=== PATIENT | male | born 1955 | race Caucasian/White ===

== ENCOUNTER 2018-04-18 10:27 | Observation (INO) | payer BC ==
--- NOTE | 2018-04-18 11:32 | ED ---
Abdominal Pain/Male - HPI Summary HPI Summary: A 62 y/o M presents to ED with c/o R-sided abd pain near ribs onset a week ago and worsening. Aggravating factors: bending, standing. Pt ate at [employer] last night and he says the pain did noticeably increase after that. Deep breaths don't effect the pain. No recent trauma or falls. Denies: hematuria, dysuria, frequency, vomiting. PMHx: multiple PE, GA around 2002. No HTN. Pt is on Coumadin 20 mg daily. Former smoker. No ETOH or drugs. As ED provider was preparing to leave the room, the patient mentioned that when he walks from his truck to his office (approx 100 yards), he feels his neck tightening with some jaw pain. He last saw his cooling room attendant in [place] in 2016 and had a normal stress test. He missed his last scheduled appt in fall 2017. - History of Current Complaint Chief Complaint: EDAbdPain Stated Complaint: RIGHT FLANK PAIN Time Seen by Provider: 04/18/18 11:23 Hx Obtained From: Patient, Family/Edger Liner - Onset/Duration: Gradual Onset, Lasting Weeks, Still Present Timing: Constant - undulating intensity Severity Initially: Moderate Severity Currently: Moderate Pain Intensity: 6 Pain Scale Used: 0-10 Numeric Location: Discrete At: RUQ - next to rib Radiates: No Character: Other: - Aching Aggravating Factor(s): Food, Movement - standing, bending over Associated Signs And Symptoms: Negative: Blood in Stool, Urinary Symptoms, Vomiting - Allergies/Home Medications Allergies/Adverse Reactions: Allergies Allergy/AdvReac Type Severity Reaction Status Date / Time No Known Allergies Allergy Verified 04/18/18 10:36 PMH/Surg Hx/FS Hx/Imm Hx Previously Healthy: Yes Endocrine/Hematology History: Denies: Hx Diabetes, Hx Thyroid Disease Cardiovascular History: Reports: Hx Myocardial Infarction Denies: Hx Hypertension, Hx Pacemaker/ICD Respiratory History: Reports: Other Respiratory Problems/Disorders - PULMONARY EMBOLISM Denies: Hx Asthma, Hx Chronic Obstructive Pulmonary Disease (COPD) GI History: Denies: Hx Ulcer History: Denies: Hx Renal Disease Musculoskeletal History: Denies: Hx Rheumatoid Arthritis, Hx Osteoporosis Sensory History: Denies: Hx Hearing Aid Psychiatric History: Denies: Hx Panic Disorder - Surgical History Surgery Procedure, Year, and Place: Left index finger tendon replaced and repaired Infectious Disease History: No Infectious Disease History: Denies: Hx Hepatitis, Hx Human Immunodeficiency Virus (HIV), History Other Infectious Disease, Traveled Outside the [place] in Last 30 Days - Family History Known Family History: Positive: Cardiac Disease - mom - GA - Social History Occupation: Unemployed - OTHER Lives: With Family Alcohol Use: None Hx Substance Use: No Substance Use Type: Reports: None Hx Tobacco Use: Yes Smoking Status (MU): Former Smoker Review of Systems Positive: Other - pos: neck tightening, jaw pain Positive: Abdominal Pain - R-sided, near rib. Negative: Vomiting Negative: dysuria, frequency, hematuria All Other Systems Reviewed And Are Negative: Yes Physical Exam - Summary Physical Exam Summary: GENERAL: Patient is a well-developed and nourished M who is lying comfortable in the stretcher. Patient is not in any acute respiratory distress. HEAD AND FACE: Normocephalic EYES: PERRLA, EOMI x 2. EARS: Hearing grossly intact. MOUTH: Oropharynx within normal limits. NECK: Supple, trachea is midline, no adenopathy, no JVD, no carotid bruit. CHEST: Symmetric, pinpoint tenderness over R lower lateral rib LUNGS: Clear to auscultation bilaterally. No wheezing or crackles. CVS: Regular rate and rhythm, S1 and S2 present, no murmurs or gallops appreciated. ABDOMEN: Soft, non-tender. Bowel sounds are normal. No abdominal abnormal pulsations. EXTREMITIES: Full ROM in all major joints, no edema, no cyanosis or clubbing. NEURO: Alert and oriented x 3. No acute neurological deficits. Speech is normal and follows commands. SKIN: Dry and warm Triage Information Reviewed: Yes Vital Signs On Initial Exam: Initial Vitals Temp Pulse Resp BP Pulse Ox 97 F 63 14 139/79 100 04/18/18 10:36 04/18/18 10:36 04/18/18 10:36 04/18/18 10:36 04/18/18 10:36 Vital Signs Reviewed: Yes Diagnostics - Vital Signs Vital Signs Temp Pulse Resp BP Pulse Ox 04/18/18 10:36 97 F 63 14 139/79 100 - Laboratory Result Diagrams: 04/18/18 12:34 04/18/18 12:34 Lab Statement: Any lab studies that have been ordered have been reviewed, and results considered in the medical decision making process. - Radiology CXR Radiology Interpretation Completed By: Radiologist Summary of Radiographic Findings: IMPRESSION: No radiographic evidence for acute cardiopulmonary abnormality on this portable chest x-ray. ED provider has reviewed this report. - CT A/P CT CT Interpretation Completed By: Radiologist Summary of CT Findings: IMPRESSION: 1. There are no renal calculi or signs of obstructive uropathy. 2. Likely hepatic steatosis. 3. Colonic diverticulosis without definite focal inflammatory change characteristic of diverticulitis. The diverticula began at the hepatic flexure in the right upper quadrant. 4. Calcified atherosclerosis at the infrarenal abdominal aorta extending into the common iliac arteries. Please correlate to any signs or symptoms of arterial insufficiency. ED provider has reviewed this report. - EKG 1254 Cardiac Rate: Bradycardia - 52 bpm EKG Rhythm: Sinus Bradycardia Summary of EKG Findings: Normal axis. No previous. Re-Evaluation - Re-Evaluation 1 Re-Evaluation Time: 14:35 Change: Improved Comment: Discussing results with pt and . Pt is agreeable to stay for observation if needed. Abdominal Pain Fem Course/Dx - Course Course Of Treatment: Pt is a 62 y/o M with PMHx: PE, DVT, GA presenting with pinpoint tenderness over R lower lateral rib onset a week ago and worsening. Pt has secondary c/o neck tightening and jaw pain when walking from his truck to office (approx 100 yards.). CXR, EKG are unremarkable. UA results are unremarkable. Lab work is unremarkable except elevated INR, APTT, potassium, and BUN/C ratio. A/P CT shows "1. There are no renal calculi or signs of obstructive uropathy. 2. Likely hepatic steatosis. 3. Colonic diverticulosis without definite focal inflammatory change characteristic of diverticulitis. The diverticula began at the hepatic flexure in the right upper quadrant. 4. Calcified atherosclerosis at the infrarenal abdominal aorta extending into the common iliac arteries. Please correlate to any signs or symptoms of arterial insufficiency.". Given hx of GA and concernig symptoms of aytypical CP, patient will be admitted for ACS evaluation. Case discussed with hospitalist. Pt will be admitted. I discussed results with patient. The patient agrees with this plan. - Diagnoses Provider Diagnoses: Flank pain, Atypical chest pain - Provider Notifications Discussed Care Of Patient With: Erika Rani - hospitalist Time Discussed With Above Provider: 14:40 Instructed by Provider To: Admit As Inpatient Discharge - Sign-Out/Discharge Documenting (check all that apply): Patient Departure - ADMIT - Discharge Plan Condition: Stable Disposition: ADMITTED TO [facility] - Billing Disposition and Condition Condition: STABLE Disposition: Admitted to [facility] - Attestation Statements Document Initiated by Scribe: Yes Documenting Scribe: Wade Caban Provider For Whom Ying is Documenting (Include Credential): Dr. Tay Queen MD Scribe Attestation: I, Wade Caban, scribed for Dr. Tay Queen MD on 04/18/18 at 1659. Scribe Documentation Reviewed: Yes Provider Attestation: The documentation as recorded by the Wade villavicencio accurately reflects the service I personally performed and the decisions made by me, Dr. Tay Queen MD Status of Scribe Document: Viewed
[2018-04-18] MEDS ORDERED: NS 0.9% 1000 ML* 1,000 ML IV ONE (11:59)
[2018-04-18] MEDS ORDERED: traMADol TAB* 50 MG PO ONE (12:02)
[2018-04-18 12:42] LABS: ABS Basophils 0 10^3/ul (0-0.2); ABS Eosinophils 0.1 10^3/ul (0-0.6); ABS Lymphocytes 1.8 10^3/ul (1.0-4.8); ABS Monocytes 0.5 10^3/ul (0-0.8); ABS Neutrophils 3.4 10^3/ul (1.5-7.7); ABS Nucleated RBC 0 10^3/ul; Eosinophil % 1.6 %; Hematocrit 44 % (42-52); Hemoglobin 14.7 g/dl (14.0-18.0); Lymphocyte % 31.3 %; Mean Corpuscular HGB Conc 34 g/dl (31-36); Mean Corpuscular Hemoglobin 32 pg (27-31); Mean Corpuscular Volume 95 fL (80-94); Nucleated Red Blood Cells % 0.1; Platelet Count 190 10^3/ul (150-450); Red Blood Count 4.63 10^6/ul (4.00-5.40); Red Cell Distribution Width 14 % (10.5-15); White Blood Count 5.9 10^3/ul (3.5-10.8)
[2018-04-18 12:50] LABS: Activated Partial Thrombo Time 55.5 seconds (26.0-36.3); INR 2.44 (0.77-1.02)
[2018-04-18 12:58] LABS: Albumin 4.3 g/dL (3.2-5.2); Albumin/Globulin Ratio 1.7 (1-3); BUN/Creatinine Ratio 24.7 (8-20); Calcium 9.3 mg/dL (8.6-10.3); Globulin 2.6 g/dL (2-4); Magnesium 2.1 mg/dL (1.9-2.7); Total Bilirubin 0.5 mg/dL (0.2-1.0); Total Protein 6.9 g/dL (6.4-8.9)
[2018-04-18 13:02] LABS: Potassium 5.1 mmol/L (3.5-5.0)
[2018-04-18 13:14] LABS: Urine Appearance Cloudy; Urine Bilirubin Negative (Negative); Urine Blood Negative (Negative); Urine Color Yellow; Urine Glucose Negative (Negative); Urine Ketones Negative (Negative); Urine Nitrite Negative (Negative); Urine Protein Negative (Negative); Urine Specific Gravity 1.024 (1.010-1.030); Urine Urobilinogen Negative (Negative)
[2018-04-18] MEDS ORDERED: Acetaminophen TAB* 325 MG PO PRN (15:36)
[2018-04-18] MEDS ORDERED: Aspirin TAB* 325 MG PO ONE (15:37)
[2018-04-18] MEDS ORDERED: Aspirin 81 mg CHEW TAB* 81 MG TAB.CHEW ONE (15:50)
--- NOTE | 2018-04-18 18:40 | HP ---
CC: Seun Flaherty NP* [facility] MEDICINE HISTORY AND PHYSICAL: DATE OF ADMISSION: 04/18/18 PRIMARY CARE PROVIDER: Seun Flaherty NP ATTENDING PHYSICIAN: Dr. Erika Hernandez* (dictation provided by Jessica Wooten NP) CHIEF COMPLAINT: Right flank pain and jaw pain with activity. HISTORY OF PRESENT ILLNESS: Mr. Haddad is a 62-year-old male with past medical history of SD 15 years ago as well as PE x2 on chronic Coumadin therapy who presents to the hospital today with concern initially for right flank pain and then description of jaw pain with exertion. Mr. Haddad states that over the past week, he has developed a pinpoint pain to his right flank. He states it is worse with palpation, it is worse with bending over, it is worse with turning and twisting [id number]. It is experienced as a sharp pain that resolves within seconds. For this reason, he came to the emergency room for evaluation. He states that he has been active putting in some porcelain tile in his home but did not feel like this was particularly strenuous and would cause him musculoskeletal injury. In addition, he had asked the emergency room physician about another problem he has been having with jaw pain with exertion. The patient states that he can walk from his car to his office, which is about 100 yards and have pain in his jaw. He denies any radiation of the pain. He has no nausea, no dyspnea, no chest pain. He does state that he had workup for a similar sensation approximately 1 year ago with a negative stress test. He does have a history of SD approximately 15 years ago. He has a long- term history of smoking, though he quit in 1990 and his siblings have also had early MIs. PAST MEDICAL HISTORY: 1. History of SD 15 years ago. 2. PE x2. 3. Hypertension. MEDICATIONS: 1. Warfarin 20 mg p.o. daily. 2. Vitamin B 2 tabs p.o. daily. 3. Sildenafil 100 mg p.o. at bedtime p.r.n. 4. Naproxen 500 mg p.o. daily. 5. Metoprolol succinate 25 mg p.o. daily. 6. Ibuprofen p.r.n. 7. Glucosamine 750 mg p.o. daily. 8. Cholecalciferol 1000 units p.o. daily. ALLERGIES: No known drug allergies. FAMILY HISTORY: The patient reports that his mother is alive and has dementia. His dad had lung cancer. His grandmother on his father's side had a blood clot and his 2 older brothers have had pacemakers, defibrillators and early MIs. SOCIAL HISTORY: The patient is a former smoker, he quit in 1990. He smoked for decades. He reports no alcohol or drug use. His lives with his who is his healthcare proxy. REVIEW OF SYSTEMS: A 14-point review of systems was completed with Mr. Haddad and all those not mentioned above were negative. PHYSICAL EXAMINATION GENERAL: Mr. Haddad is sitting on the bed with his at the bedside. He is in no acute distress. VITAL SIGNS: Temperature 97, pulse rate 62, respiratory rate 15, O2 saturation 96% on room air, blood pressure 139/87. LUNGS: Clear to auscultation bilaterally with no accessory muscle use and good aeration. HEART: S1, S2. No murmur, rub, or gallop and regular. ABDOMEN: Soft, nontender with bowel sounds positive x4. NEURO: He is alert. He is oriented x3. He moves all extremities equally. There is no facial asymmetry or focal weakness. Extraocular movements are intact. EXTREMITIES: No cyanosis or edema. SKIN: Intact. LABORATORY DATA/DIAGNOSTIC STUDIES: WBC 5.9, hemoglobin 14.7, hematocrit 44, platelet count 190,000. INR 2.44. Sodium 140, potassium 5.1, chloride 109, serum bicarbonate 29, BUN 21, creatinine 0.85, glucose 93. Urine shows no evidence of infection. EKG shows no evidence of ischemia and a heart rate of 52. Abdomen and pelvis CT shows no acute abnormality and is read as follows: "There are no renal calculi or signs of obstructive uropathy. Likely hepatic steatosis, colonic diverticulosis without definite focal inflammatory change characteristic of diverticulitis, calcified atherosclerosis at the infrarenal abdominal aorta extending into the common iliac arteries." ASSESSMENT AND PLAN: Mr. Haddad is a 62-year-old male with a past medical history of myocardial infarction and pulmonary embolism on Coumadin with a therapeutic INR who presents today to the hospital with concern initially for pinpoint right flank pain and then revelation of jaw pain with exertion. Our plans are for observation in the hospital for the followin. Right flank pain. I suspect the patient has a musculoskeletal injury as his pain is reproducible with palpation and his workup has been negative. He will have Tylenol available p.r.n. He can resume ibuprofen at home. 2. Jaw pain with exertion. The patient's symptoms are concerning for anginal equivalent. Plan for troponins x3 and he will go on for chemical stress test tomorrow. He does not believe that he will be able to perform an exercise stress test based on his generalized deconditioning. 3. Pulmonary embolism. Continue warfarin, and INR is therapeutic. 4. Hypertension. Continue metoprolol. 5. DVT prophylaxis with Coumadin. TIME SPENT: Approximately 60 minutes were spent on the admission of this patient, more than half of the time was spent with the patient at the bedside reviewing the events leading up to this hospitalization, performing the physical examination and reviewing the plan of care. JESSICA WOOTEN NP [id number]/[facility] #: [id number] HALLE
[2018-04-19 07:09] LABS: HDL Cholesterol 45.2 mg/dL
[2018-04-19] MEDS ORDERED: Regadenoson* 0.4 MG/5 ML SYRINGE ONE (08:46)
[2018-04-19] MEDS ORDERED: Aminophylline IV* 25 MG/ML 10 ML VIAL ONE (08:46)
[2018-04-19] MEDS ORDERED: Metoprolol Succinate XL TAB* 25 MG PO SCH (09:00)
[2018-04-19] MEDS ORDERED: Warfarin TAB(*) 10 MG PO SCH (09:00)
[2018-04-19] MEDS ORDERED: Cholecalciferol TAB* 1000 UNITS PO SCH (09:00)
[2018-04-19] MEDS ORDERED: Vitamin B Complex TAB PO SCH (09:00)
[2018-04-19 11:28] VITALS: BP 149/83
--- NOTE | 2018-04-19 12:35 | PN ---
Subjective Date of Service: 04/19/18 Interval History: Mr. Haddad denies jaw pain though he has not been active. He continues to have pinpoint right sided pain in his flank that is reproducible with palpation. Objective Active Medications: Acetaminophen (Tylenol Tab*) 650 mg PO Q6H PRN Cholecalciferol (Vitamin D Tab*) 1,000 units PO DAILY [facility] Metoprolol Succinate (Toprol Xl Tab*) 25 mg PO DAILY [facility] Vitamin B Complex/Vitamin E (B Complex-50*) 2 tab PO DAILY [facility] Warfarin Sodium (Coumadin Tab(*)) 20 mg PO DAILY [facility]PH[facility]; Protocol Vital Signs: Temp Pulse Resp BP Pulse Ox 97.2 F 60 15 149/83 99 04/19/18 10:44 04/19/18 10:44 04/19/18 10:44 04/19/18 10:44 04/19/18 10:44 Oxygen Devices in Use Now: None Appearance: Male lying in bed in NAD Eyes: No Scleral Icterus Ears/Nose/Mouth/Throat: Mucous Membranes Moist Neck: Trachea Midline Respiratory: Symmetrical Chest Expansion and Respiratory Effort, Clear to Auscultation Cardiovascular: NL Sounds; No Murmurs; No JVD, No Edema Abdominal: NL Sounds; No Tenderness; No Distention Extremities: No Edema Skin: No Rash or Ulcers Neurological: Alert and Oriented x 3, NL Muscle Strength and Tone Nutrition: Taking PO's Result Diagrams: 04/18/18 12:34 04/18/18 12:34 Assess/Plan/Problems-Billing Assessment: Mr. Haddad is a 62 yo M with a PMH of CAD with [place] approx 15 yrs ago who was admitted on 04/18/18 with concern for jaw pain with exertion. - Patient Problems (1) Jaw pain Comment: - Trops, EKG and stress test negative - Not anginal equivalent - Follow up with PCP (2) Right upper quadrant abdominal pain Comment: - Pinpoint reproducible pain, suspect musculoskeletal injury, NSAIDs and acetaminophen recommended (3) Hypertension Comment: - Continue metoprolol (4) DVT prophylaxis Comment: - Early mobility, warfarin (5) Full code status Comment: Status and Disposition: OBV. Discharge to home.
--- NOTE | 2018-04-19 23:50 | DS ---
CC: Seun Flaherty NP * DISCHARGE SUMMARY: DATE OF ADMISSION: 04/18/18 DATE OF DISCHARGE: 04/19/18 PRIMARY CARE PHYSICIAN: Seun Flaherty NP ATTENDING PHYSICIAN: Dr. Maine Waldron * (dictation provided by Jessica Wooten NP ). PRIMARY DIAGNOSES: 1. Jaw pain with exertion, workup negative. 2. Right upper quadrant pain, suspect musculoskeletal injury. SECONDARY DIAGNOSES: 1. History of myocardial infarction 15 years ago. 2. Pulmonary embolism x2. 3. Hypertension. MEDICATIONS AT THE TIME OF DISCHARGE: 1. Atorvastatin 40 mg p.o. daily (new medication). 2. Warfarin 20 mg p.o. daily. 3. Vitamin B 2 tabs p.o. daily. 4. Sildenafil 100 mg p.o. at bedtime p.r.n. 5. Metoprolol succinate 25 mg p.o. daily. 6. Ibuprofen p.r.n. short term, no longer than 1 week. 7. Glucosamine 750 mg p.o. daily. 8. Cholecalciferol 1000 units p.o. daily. 9. Tylenol p.r.n. HOSPITAL COURSE: Mr. Haddad is a 62-year-old male with past medical history of MT 15 years ago and PE x2, on Coumadin, as well as hypertension, who presented to the hospital on 04/18/18 with concern for right flank pain and then revealed that he also had jaw pain with activity. Please see the dictated H and P from myself for complete details. In brief, the patient had reported that he had had about a week of right-sided pinpoint reproducible flank pain. The pain continued to get worse during the week and therefore, he came to the emergency room for evaluation. In the emergency room, he had a CT of the abdomen and pelvis, which showed "there are no renal calculi or signs of obstructive uropathy, likely hepatic steatosis, colonic diverticulosis without definite focal inflammatory change characteristic of diverticulitis. The diverticulum began at the hepatic flexure in the right upper quadrant. Calcified atherosclerosis at the infrarenal abdominal aorta extending into the common iliac arteries. It was suspected that this right-sided abdominal pain was due to musculoskeletal injury as it was completely reproducible with palpation. While in the emergency room, the patient revealed also that he had jaw pain with exertion. He stated that he had had stress test for this 1 year previous that was negative, but he remained concerned. Due to his history of MT and multiple risk factors, he was placed on observation in the hospital for workup. Mr. Haddad had troponins x3 all of which were negative. His EKG showed no evidence of ischemia. He went on for a chemical stress test today, which was low risk with no evidence of ischemia. I have discussed Mr. Haddad's symptoms with him at length. Again, I have told him that his right flank pain is likely musculoskeletal in origin and that his workup is negative. I recommended a Tylenol and use of short-term ibuprofen for musculoskeletal pain relief. I have reminded him that he should not use NSAIDs any longer than a week due to his concomitant use of warfarin and high risk for GI bleed. I have also spoken to him about his jaw pain. He has had 2 negative stress tests for the same pain. He reports no GERD or dyspepsia. Our concern for difficulty swallowing that might suggest this is esophageal in origin. I suggested to him that he follow up with his locksmith helper and that there are cases in which distal atherosclerosis in the coronary arteries can be symptomatic though not appreciable on stress test or amenable to stenting and then he might benefit from nitrates. Alternatively, he may have a GI condition driving these symptoms and I have recommended that he follow up with his primary care physician in that regard. In either case, the patient's workup is negative and he is medically stable for discharge to home. I have counseled Mr. Haddad at length as well about increasing his exercise and working to lose weight as he is at high risk for cardiovascular event. He states an intention to start exercising and I have recommended that he start on atorvastatin 40 mg p.o. daily based on his risk via ASCVD score of 16.6. DISPOSITION: Home. DIET: Low fat, low salt. ACTIVITY: As tolerated. FOLLOWUP PLANS: Please follow up with Dr. Flaherty and with your locksmith helper regarding the above. TIME SPENT: Approximately 60 minutes was spent on the discharge of this patient , more than half the time was spent with the patient at the bedside reviewing the events leading up to this hospitalization and during this hospitalization, performing the physical examination, and reviewing my plan of care. JESSICA WOOTEN, SIGNS SALES REPRESENTATIVE [id number]/[facility] #: [id number] HALLE
== END 2018-04-19 14:12 | disposition home or self-care (01) ==
LOC: ED 10:27 → MEDTELE 15:17
PROVIDERS: ADMIT Internal Medicine; ATTEND Internal Medicine
DX: R68.84 Jaw pain (principal); R10.11 Right upper quadrant pain; I25.2 Old myocardial infarction; I10 Essential (primary) hypertension; Z87.891 Personal history of nicotine dependence; R07.89 Other chest pain; I26.99 Other pulmonary embolism without acute cor pulmonale; Z79.01 Long term (current) use of anticoagulants
CPT/HCPCS: 36415; 71045; 74176; 78452; 80053; 80061; 81003; 83605; 83735; 84484; 85025; 85610; 85730; 93005; 93017; 99284; A9270-GY; A9502; G0378; J0280; J2785

== ENCOUNTER 2018-11-25 11:48 | Emergency (ER) | payer BC ==
--- OUTSIDE RECORDS SUMMARY | 2018-11-25 11:56 | XMS REPORT | Continuity of Care Document ---
:1955 External Reference #:[id number] Author Name Soco Gaxiola Care Team Providers Name Role Phone Patient's Choice Primary Care Physician Unavailable Payers Date Identification Numbers Payment Provider Subscriber Effective: 2018 Policy Number: [id number] [employer] Natanael Haddad PayID: [id number] [place] [address] Expires: 2018 Policy Number: [id number] [employer] Natanael Haddad PayID: [id number] [address] [place] [address] Policy Number: [id number] [employer] Joao Haddad [address] [place] [address] Problems Active Problems Provider Date Angina pectoris Brendan Granda M.D., [facility], Onset: 06/15/2018 [facility] Spinal stenosis of lumbar region Nixon Emerson M.D. Onset: 05/30/2015 Family History Date Family Member(s) Observation Comments General Heart Disease General Lung Cancer Father Alcoholism Father due to Liver Cancer () Mother Dementia Social History Type Date Description Comments Sex Unknown Marital Status Lives With Family Occupation Currently Working Occupation [employer] Tobacco Use Start: Unknown End: Former Cigarette Smoker Unknown Smoking Status Reviewed: 11/22/18 Former Cigarette Smoker ETOH Use Denies alcohol use Tobacco Use Start: Unknown End: Patient is a former smoker Unknown Recreational Drug Use Denies Drug Use Exercise Type/Frequency Exercises sporadically Allergies, Adverse Reactions, Alerts Description No Known Drug Allergies Medications Active Medications SIG Qnty Indications Ordering Provider Date Warfarin Sodium 2 qd Unknown 10mg Tablets Metoprolol Succinate ER 1 by mouth daily Unknown 25mg Tablets ER 24HR Ibuprofen as needed Unknown 200mg Capsules Omeprazole 1 by mouth every Unknown 20mg Capsules DR day Viagra use as needed Unknown 100mg Tablets daily Glucosamine Chondroitin 2 tabs po qd Unknown Complex Plus MSM/Triple Strength Tablets Vitamin B Complex 1 by mouth every Unknown Tablets day Atorvastatin Calcium 1 by mouth every Unknown 40mg day Tablets Vitamin D3 1 by mouth every Unknown 1000Unit day Capsules Tumeric Curcumin 1 po qd Unknown Magnesium 1 po once daily Unknown 500mg Capsules History Medications Levitra prn Unknown - 05/21/2018 20mg Tablets Naproxen 1 tablet by mouth Unknown - 05/21/2018 250mg Tablets twice a day as needed pain, with foods Vitamin D,B,C qd Unknown - 05/21/2018 Glucosamine & Chondroiti qd Unknown - 05/21/2018 N/Vitamin D Maximum Strength 7824-9394-250hp-mg-Unit Packet Atorvastatin Calcium 1 by mouth every day Unknown - 2018 10mg Tablets Vital Signs Date Vital Result Comment 11/22/2018 12:46pm Height 74 inches 6'2" Weight 233.00 lb BP Systolic Sitting 116 mmHg BP Diastolic Sitting 78 mmHg Pain Level 8 BMI (Body Mass Index) 29.9 kg/m2 06/15/2018 2:00pm Height 74 inches 6'2" Weight 233.00 lb no shoes Heart Rate 74 /min BP Systolic Sitting 112 mmHg lue reg cuff BP Diastolic Sitting 70 mmHg lue reg cuff BP Systolic Standing 120 mmHg lue reg cuff BP Diastolic Standing 70 mmHg lue reg cuff BMI (Body Mass Index) 29.9 kg/m2 05/30/2015 1:13pm Height 74 inches 6'2" Weight 242.00 lb Heart Rate 82 /min BP Systolic Sitting 158 mmHg BP Diastolic Sitting 80 mmHg Pain Level 2 BMI (Body Mass Index) 31.1 kg/m2 Procedures Date Code Description Status 06/15/2018 70231 EKG Tracing & Interpretation Completed 04/19/2018 75665 Treadmill Interp/Report Only Completed 04/19/2018 90400 Stress Test Supervsn W/Out I/R Completed Encounters Type Date Location Provider Dx Diagnosis Office Visit 11/22/2018 Neurosurgery Mariella Ag, 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 Jessica Wooten, R68.84 Jaw pain 9:52a [facility] R10.11 Right upper quadrant pain I26.99 Other pulmonary embolism without acute cor pulmonale I10 Essential (primary) hypertension Office Visit 04/18/2018 9:51a [facility] Jessica Wooten, N.P. R68.84 Jaw pain [facility] R10.9 Unspecified abdominal pain I26.99 Other pulmonary embolism without acute cor pulmonale Office Visit 05/30/2015 1:15p Neurosurgery Nixon Emerson, M48.06 [facility] stenosis, lumbar region Plan of Treatment Future Appointment(s):12/22/2018 11:00 am - JONATHAN Alaniz at [facility]11/22/2018 - TIMA Alaniz47.815 Spondyls w/o myelopathy or radiculopathy, thoracolum regionNew Xrays:Spine Entire Ap/Lat, Ordered: SP Lumbarsacral W/Bending VWS, Ordered: 11/22/18MRI Lumbar Spine W/O, Ordered : 11/22/18Follow up:RTC 4 weeks
--- OUTSIDE RECORDS SUMMARY | 2018-11-25 11:56 | XMS REPORT | Continuity of Care Document ---
:1955 External Reference #:[id number] Author Name Seun Flaherty, N.P. Address [address] [place] [address] Care Team Providers Name Role Phone Brendan Stern MD Care Team Information Blood Bank Assistant Unavailable Payers Date Identification Numbers Payment Provider Subscriber Effective: Policy Number: [id number] [employer] Natanael Haddad 2018 PayID: [id number] [address] [address] [place] [address] Problems Active Problems Provider Date Pure hypercholesterolemia Seun Flaherty, N.P. Onset: 02/03/2011 Low back pain Seun Flaherty, N.P. Onset: 11/06/2015 Blood coagulation disorder Seun Flaherty, N.P. Onset: 10/10/2016 Essential hypertension Seun Flaherty, N.P. Onset: 10/10/2016 Deep venous thrombosis of lower extremity Seun Flaherty, N.P. Onset: 10/10 Gastric ulcer Seun Flaherty, N.P. Onset: 06/15/2017 Myocardial infarction Seun Flaherty, N.P. Onset: 05/03/2018 Note: 2001 Family History Date Family Member(s) Observation Comments Father due to Cancer, Liver () Father Alcoholism Father Tobacco Abuse Mother Dementia First Brother Heart Disease Second Brother Diverticulitis First Sister due to Cancer, Breast () Second Sister Good Health Social History Type Date Description Comments Sex Unknown Occupation 05/02/2014 [employer] [facility] Document: 05/02/14 - Short Exam-159 ETOH Use Denies alcohol use Tobacco Use Start: Unknown Patient has never smoked Allergies, Adverse Reactions, Alerts Description No Known Drug Allergies Medications Active Medications SIG Qnty Indications Ordering Provider Date Mupirocin apply to affected 22gm Lucho Flahertyeugenia, 11/16/2018 2% Ointment area twice a day N.P. Sildenafil Citrate Take One Tablet 12tabs Seun Flaherty, 07/29/2018 By Mouth as N.P. 100mg Tablets Directed, Maximum Daily Dose=1 Atorvastatin Calcium Take One Tablet 90tabs Seun Flaherty, 05/03/2018 By Mouth Every N.P. 40mg Tablets Day Omeprazole Take One Capsule 30caps Seun Flaherty, 06/15/2017 20mg By Mouth Every N.P. Capsules DR Day Warfarin Sodium Take Two Tablets 60tabs Seun Flaherty, 08/16/2016 10mg By Mouth Every N.P. Tablets Day Viagra Take One Tablet 12tabs Seun Flaherty, 11/06/2015 100mg Tablets By Mouth as N.P. Directed, Maximum Daily Dose=1 Vitamin D High 1 by mouth every Seun Flaherty, 04/26/2015 Potency day N.P. 1000Unit Capsules Vitamin B Complex 1 by mouth every Seun Flaherty, 04/26/2015 day N.P. Tablets Glucosamine 2 by mouth every Seun Flaherty, 04/26/2015 Chondroitin MSM day N.P. Triple Strength Tablets Toprol XL 1 po qd 30tabs Seun Flaherty, 05/30/2010 25mg Tablets N.P. ER 24HR Lab Work PT/inr Dx: z79.01 Seun Flaherty, 11/01/2008 N.P. Coumadin 2 by mouth every 60tabs Seun Flaherty, 06/05/2004 10mg Tablets day N.P. History Medications Physical Therapy eval and treat low Seun Flaherty, 01/24/2015 - back pain Dx: N.P. 04/26/2015 lumbago Cefdinir 1 by mouth twice a 20caps Seun Flaherty, 08/24/2014 - 300mg Capsules day x 10 days N.P. 01/24/2015 Augmentin 1 by mouth twice a 20tabs Seun Flaherty, 08/22/2014 - 875-125mg Tablets day x 10 days N.P. 08/24/2014 Medical Note Patient has Seun Flaherty, 11/24/2013 - intermittant, rare N.P. 01/24/2015 use of flexeril. last prescribed 5 months ago for 10 days supply. Cyclobenzaprine HCL take one tablet by 30tabs Seun Flaherty, 2013 - 10mg mouth three times N.P. 11/06/2015 Tablets a day Levitra 1 by mouth as 12tabs Seun Flaherty, 10/13/2012 - 20mg Tablets directed N.P. 11/06/2015 Soma 1 po qid 32tabs Seun Flaherty, 02/03/2011 - 350mg Tablets N.P. 12/25/2011 Simvastatin 1 po qd 30tabs Seun Flaherty, 02/03/2011 - 20mg Tablets N.P. 10/13/2012 Warfarin Sodium take two tablets 60tabs Seun Flaherty, 01/09/2011 - 10mg by mouth every day N.P. 05/13/2016 Tablets Levitra 1 po as Directed 12tabs Seun Flaherty, 06/17/2010 - 10mg Tablets N.P. 10/13/2012 Omnicef 1 po bid x 10 days 20caps Seun Flaherty, 08/20/2009 - 300mg Capsules N.P. 05/30/2010 Lab Seun Flaherty, 02/21/2009 - N.P. 05/27/2010 Ibuprofen 1 po qid with food 40tabs Seun Flaherty, 07/24/2008 - 800mg Tablets N.P. 08/01/2009 Flexeril 1 po tid 30tabs Seun Flaherty, 07/24/2008 - 10mg Tablets N.P. 08/01/2009 Coumadin 1 qd 30tabs Seun Flaherty, 02/21/2008 - 2.5mg Tablets N.P. 05/13/2016 Blood Draw PT/inr q mo and on Trabout, 01/11/2008 - demand.dx:v58.61 MD Brendan 08/01/2009 Lab PT/inr Seun Flaherty, 01/10/2008 - N.P. 08/01/2009 dx: coumadin, DVT Vicodin 1-2 po q 4-6 hrs 40tabs Seun Flaherty, 12/09/2007 - 5-500mg Tablets prn pain N.P. 08/01/2009 Lab PT/inr Lucho Flahertyeugenia, 12/08/2007 - N.P. 02/21/2009 dx: coumadin therapy Levitra 1 as Directed 12tabs Seun Flaherty, 05/03/2007 - 10mg Tablets N.P. 05/30/2010 Atenolol 1 PO qd Seun Flaherty, 04/23/2007 - 25mg Tablets N.P. 05/30/2010 Atenolol 1 PO qd 30tabs [facility], 04/22/2007 - 50mg Tablets MD Brendan 04/23/2007 Rosalab-D 12 Hour [facility] Q 12H [facility] - [facility]Hour MD Brendan 05/30/2010 Tablets ER 12HR Mucinex 2 Every 12Hours [facility], 04/22/2007 - 600mg Tablets ER MD Brendan 08/01/2009 12HR Nasonex 2 Puffs Each sample [facility], 04/22/2007 - 50mcg/Act Nostril qd MD Brendan 05/30/2010 Suspension Lab PT/inr, cbc, Seun Flaherty, 02/23/2007 - lipids, complete N.P. 04/23/2007 chem, psa dx:clotting disorder, screening Keflex 1 po qid x 7 days 28tabs Seun Flaherty, 06/18/2006 - 500mg Tablets N.P. 04/22/2007 Flexeril 1 po tid prn 30tabs [facility], 04/23/2006 - 10mg Tablets MD Brendan 04/22/2007 Wellbutrin SR 1 po bid 60tabs Seun Flaherty, 04/06/2006 - 150mg Tablets N.P. 12/25/2011 Levaquin 1 po qd x 10 days 10tabs Seun Flaherty, 03/23/2006 - 500mg Tablets N.P. 04/02/2006 Keflex 1 po qid x 10 days 40tabs Seun Flaherty, 03/09/2006 - 500mg Tablets N.P. 03/19/2006 Wellbutrin XL 1 po qd 30tabs Seun Flaherty, 03/09/2006 - 150mg Tablets N.P. 04/06/2006 Radiology Request cxr Seun Flaherty, 09/09/2005 - N.P. 04/23/2007 dx: midsternal mass Citalopram HBR 1 PO qd 30tabs Seun Flaherty, 07/03/2005 - 20mg Tablets N.P. 04/22/2007 PT dx: small r Reynold Luchoeugenia, 07/03/2005 - rotator cuff tear N.P. 04/23/2007 please eval and treat Lexapro 1 po qd 30tabs Seun Flaherty, 06/05/2005 - 20mg Tablets N.P. 07/03/2005 Transderm Scop apply 4 hours 4units Lucho Flahertyeugenia, 06/07/2004 - 1.5mg before travel, N.P. 09/09/2005 [facility] leave for 72 hours, then replace Omeprazole 1 by mouth every Unknown - 10mg Capsules DR day 06/15/2017 Atorvastatin Calcium 1 by mouth every Unknown - 10mg day 05/03/2018 Tablets Medications Administered in Office Medication SIG Qnty Indications Ordering Provider Date PPD Nurses Schedule Mckinney 07/13/2018 Injection PPD Nurses Schedule Mckinney 07/13/2018 Injection PPD Nurses Schedule Mckinney 06/22/2012 Injection PPD Nurses Schedule Mckinney 07/21/2011 Injection Immunizations CPT Code Status Date Vaccine Lot # [id number] Given 04/26/2015 Tdap (Adacel) Ages 7 And Above Only [id number] Given 04/26/2015 Prevnar 13 Pneumococal Conjugate Vaccine [id number] Given 01/24/2015 Influenza Vac, Quadrivalent, Split, 0.5mL Dosage, [id number] Im Use [id number] Given 03/09/2014 Afluria Or Fluvirin Flu Vac Intramuscular [id number] Refused 02/12/2018 Pneumococcal 23 Immunization Adult Or Immunosuppressed Patient 15143 Refused 02/12/2018 Influenza Vac, Quadrivalent, Split, 0.5mL Dosage, Im Use Vital Signs Date Vital Result Comment 11/16/2018 2:01pm Body Temperature 97.9 F Weight 229.25 lb Heart Rate 65 /min BP Systolic 110 mmHg BP Diastolic 70 mmHg Height 73 inches 6'1" O2 % BldC Oximetry 98 % BMI (Body Mass Index) 30.2 kg/m2 05/03/2018 11:29am Body Temperature 97.9 F Weight 234.50 lb Heart Rate 60 /min BP Systolic 130 mmHg BP Diastolic 84 mmHg O2 % BldC Oximetry 96 % 06/15/2017 10:05am Body Temperature 97.7 F Weight 228.25 lb Heart Rate 62 /min BP Systolic 138 mmHg BP Diastolic 98 mmHg O2 % BldC Oximetry 98 % 10/10/2016 10:26am Body Temperature 97.5 F Weight 234.00 lb Heart Rate 65 /min BP Systolic 133 mmHg BP Diastolic 70 mmHg O2 % BldC Oximetry 97 % 05/13/2016 10:55am Body Temperature 97.3 F Weight 249.00 lb Heart Rate 76 /min BP Systolic 139 mmHg BP Diastolic 80 mmHg Height 73 inches 6'1" O2 % BldC Oximetry 98 % BMI (Body Mass Index) 32.8 kg/m2 11/06/2015 8:50am Body Temperature 97.5 F Weight 234.25 lb Heart Rate 66 /min BP Systolic 132 mmHg BP Diastolic 80 mmHg O2 % BldC Oximetry 98 % 04/26/2015 10:10am Body Temperature 97.1 F Weight 238.12 lb Heart Rate 59 /min BP Systolic 134 mmHg BP Diastolic 81 mmHg 01/24/2015 8:58am Body Temperature 97.3 F Weight 232.25 lb Heart Rate 59 /min BP Systolic 133 mmHg BP Diastolic 79 mmHg 08/22/2014 11:11am Body Temperature 97.5 F Weight 221.00 lb Heart Rate 74 /min BP Systolic 118 mmHg BP Diastolic 74 mmHg O2 % BldC Oximetry 98 % 05/02/2014 11:29am Weight 221.38 lb Heart Rate 58 /min BP Systolic 133 mmHg BP Diastolic 73 mmHg 06/27/2013 2:04pm Body Temperature 96.5 F Weight 246.44 lb Heart Rate 78 /min BP Systolic 120 mmHg BP Diastolic 80 mmHg 10/13/2012 9:51am Body Temperature 96.3 F Weight 230.12 lb Heart Rate 57 /min BP Systolic 112 mmHg BP Diastolic 84 mmHg O2 % BldC Oximetry 95 % 12/25/2011 2:17pm Body Temperature 97.7 F Weight 236.00 lb Heart Rate 64 /min BP Systolic 120 mmHg BP Diastolic 80 mmHg 02/03/2011 1:02pm Body Temperature 97.6 F Weight 234.00 lb Heart Rate 68 /min BP Systolic 124 mmHg BP Diastolic 70 mmHg O2 % BldC Oximetry 98 % 06/13/2010 4:10pm Weight 237.00 lb Heart Rate 64 /min BP Systolic 104 mmHg BP Diastolic 70 mmHg O2 % BldC Oximetry 99 % 05/30/2010 3:36pm Body Temperature 98.3 F Weight 236.00 lb Heart Rate 70 /min BP Systolic 118 mmHg BP Diastolic 80 mmHg O2 % BldC Oximetry 94 % 08/20/2009 1:46pm Body Temperature 98.7 F Weight 229.00 lb Heart Rate 82 /min BP Systolic 112 mmHg BP Diastolic 64 mmHg Height 73.75 inches 6'1.75" O2 % BldC Oximetry 97 % BMI (Body Mass Index) 29.6 kg/m2 08/01/2009 3:50pm Body Temperature 98.6 F Weight 233.00 lb Heart Rate 62 /min BP Systolic 118 mmHg BP Diastolic 78 mmHg Height 73.75 inches 6'1.75" O2 % BldC Oximetry 97 % BMI (Body Mass Index) 30.1 kg/m2 11/29/2008 3:11pm Body Temperature 98.5 F Weight 227.00 lb Heart Rate 72 /min BP Systolic 120 mmHg BP Diastolic 84 mmHg 11/01/2008 3:23pm Body Temperature 97.3 F Weight 221.00 lb Heart Rate 64 /min BP Systolic 118 mmHg Standing BP Diastolic 78 mmHg Standing BP Systolic Recheck 102 mmHg Sitting BP Diastolic Recheck 62 mmHg Sitting 10/06/2008 8:13am Weight 222.00 lb Heart Rate 70 /min BP Systolic 118 mmHg BP Diastolic 72 mmHg 07/24/2008 1:54pm Body Temperature 98.2 F Weight 228.00 lb Heart Rate 59 /min BP Systolic 122 mmHg BP Diastolic 78 mmHg O2 % BldC Oximetry 98 % 02/21/2008 3:50pm Body Temperature 98.2 F Weight 239.00 lb Heart Rate 58 /min BP Systolic 136 mmHg BP Diastolic 95 mmHg Height 73.75 inches 6'1.75" BMI (Body Mass Index) 30.9 kg/m2 12/06/2007 3:57pm Body Temperature 98.4 F Weight 235.00 lb Heart Rate 66 /min BP Systolic 126 mmHg BP Diastolic 67 mmHg 04/22/2007 3:12pm Body Temperature 98.0 F Weight 238.00 lb Heart Rate 68 /min BP Systolic 126 mmHg BP Diastolic 86 mmHg 06/18/2006 3:33pm Body Temperature 98.2 F Weight 232.00 lb Heart Rate 80 /min BP Systolic 124 mmHg BP Diastolic 70 mmHg 04/07/2006 4:16pm Body Temperature 98.2 F Weight 231.00 lb Heart Rate 60 /min BP Systolic 114 mmHg BP Diastolic 66 mmHg 03/09/2006 2:37pm Body Temperature 98.6 F Weight 229.00 lb Heart Rate 72 /min BP Systolic 106 mmHg BP Diastolic 66 mmHg 09/09/2005 3:08pm Body Temperature 98.3 F Weight 230.00 lb Heart Rate 84 /min BP Systolic 106 mmHg BP Diastolic 70 mmHg 07/03/2005 3:01pm Body Temperature 98.1 F Weight 230.00 lb Heart Rate 84 /min BP Systolic 112 mmHg BP Diastolic 76 mmHg 06/05/2005 8:26am Body Temperature 98.5 F Weight 228.00 lb Heart Rate 56 /min BP Systolic 120 mmHg BP Diastolic 80 mmHg 12/03/2004 8:48am Body Temperature 98.2 F Weight 221.00 lb Heart Rate 20 /min BP Systolic 124 mmHg BP Diastolic 84 mmHg 09/25/2004 1:49pm Body Temperature 98.3 F Weight 222.00 lb Heart Rate 68 /min BP Systolic 124 mmHg BP Diastolic 80 mmHg Results Test Date Facility Test Result H/L Range Note Laboratory test 11/16/2018 [facility] PSA <pending> finding Protime 10/13/2017 [facility] Prothrombin Time 20.6 sec High 10.2-12.0 1 Inr 2.1 % 2.0-3.0 Protime 10/10/2016 [facility] Prothrombin Time 23.5 sec High 10.2-12.0 2 Inr 2.2 % 2.0-3.0 Comprehensive Met Panel-[facility] 10/10/2016 [facility] Sodium 143 mmol/L 135- 146 3 Potassium 5.2 mmol/L 3.5-5.2 Chloride# 109 mmol/L 97-110 4 Carbon Dioxide 27 mmol/L 24-34 Glucose 86 mg/dL 70-105 BUN 29 mg/dL High 6-26 Creatinine 1.0 mg/dL 0.5-1.4 Calcium 9.4 mg/dL 8.5-10.2 Total Protein 6.7 g/dL 6.0-8.0 Albumin 4.4 g/dL 3.6-4.9 Globulin 2.3 g/dL 2.0-3.5 A/G Ratio 1.9 Ratio 1.0-2.2 Total Bilirubin 0.4 mg/dL 0.1-1.3 Alkaline Phosphatase 52 U/L 24-140 Alt 29 U/L 3-42 Ast 26 U/L 8-42 Meenakshi Egfr >60 >60 5 Non Meenakshi Egfr >60 >60 6 Anion Gap 12 mmol/L 7-16 7 Laboratory test finding 05/13/2016 [facility] PSA 0.880 ng/mL 0.000-4.000 8, 9 Hepatitis C Virus Antibody NONREACTIVE Nonreactive Lipid 05/13/2016 [facility] Cholesterol 179 mg/dL 50-199 Triglycerides 117 mg/dL 30-200 HDL 50 mg/dL 29-71 10 Chol/ HDL Ratio 3.6 ratio Low 4.0-6.7 VLDL 23 mg/dL 2-29 LDL (Calc) 106 mg/dL High 20-99 11 Comprehensive Metabolic (CMP) 05/13/2016 [facility] Sodium 137 mmol/L 134- 142 Potassium 4.6 mmol/L 3.5-5.2 Chloride 105 mmol/L 97-109 Carbon Dioxide 31 mmol/L 24-34 Glucose 118 mg/dL High 70-105 BUN 19 mg/dL 6-26 Creatinine 0.9 mg/dL 0.5-1.4 Calcium 8.9 mg/dL 8.5-10.2 Total Protein 6.5 g/dL 6.0-8.0 Albumin 4.1 g/dL 3.6-4.9 Globulin 2.4 g/dL 2.0-3.5 A/G Ratio 1.7 Ratio 1.0-2.2 Total Bilirubin 0.5 mg/dL 0.1-1.3 Alkaline Phosphatase 39 U/L 24-140 Alt 24 U/L 3-42 Ast 16 U/L 8-42 Anion Gap 6 mmol/L 6-14 Meenakshi Egfr >60 >60 12 Non Meenakshi Egfr >60 >60 13 Protime 05/13/2016 [facility] Prothrombin Time 26.3 sec High 10.2-12.0 Inr 2.5 % 2.0-3.0 Protime 11/06/2015 [facility] Prothrombin Time 30.5 sec High 10.2-12.0 14 Inr 3.0 % 2.0-3.0 Protime 08/02/2015 [facility] Prothrombin Time 22.7 sec High 10.2-12.0 Inr 2.2 % 2.0-3.0 Protime 07/19/2015 [facility] Prothrombin Time 18.9 sec High 10.2-12.0 Inr 1.8 % Low 2.0-3.0 Laboratory test 04/26/2015 [facility] PSA 0.880 ng/mL 0.000-4.000 15 finding Lipid 04/26/2015 [facility] Cholesterol 222 mg/dL High 50-199 Triglycerides 94 mg/dL 30-200 HDL 53 mg/dL 29-71 16 Chol/ HDL Ratio 4.2 ratio 4.0-6.7 VLDL 19 mg/dL 2-29 LDL (Calc) 150 mg/dL High 20-99 17 Comprehensive Metabolic (CMP) 04/26/2015 [facility] Sodium 138 mmol/L 134- 142 Potassium 5.2 mmol/L 3.5-5.2 Chloride 106 mmol/L 97-109 Carbon Dioxide 27 mmol/L 24-34 Glucose 97 mg/dL 70-105 BUN 22 mg/dL 6-26 Creatinine 0.9 mg/dL 0.5-1.4 Calcium 9.4 mg/dL 8.5-10.2 Total Protein 6.9 g/dL 6.0-8.0 Albumin 4.3 g/dL 3.6-4.9 Globulin 2.6 g/dL 2.0-3.5 A/G Ratio 1.7 Ratio 1.0-2.2 Total Bilirubin 0.6 mg/dL 0.1-1.3 Alkaline Phosphatase 39 U/L 24-140 Alt 17 U/L 3-42 Ast 14 U/L 8-42 Anion Gap 10 mmol/L 6-14 Meenakshi Egfr >60 >60 18 Non Meenakshi Egfr >60 >60 19 Protime 04/26/2015 [facility] Prothrombin Time 18.7 sec High 10.2-12.0 Inr 1.8 % Low 2.0-3.0 Protime 01/15/2015 [facility] Prothrombin Time 27.9 sec High 10.2-12.0 Inr 2.7 % 2.0-3.0 Protime 06/01/2014 [facility] Prothrombin Time 30.8 sec High 10.2-12.0 Inr 2.8 % 2.0-3.0 Protime 05/02/2014 [facility] Prothrombin Time 16.7 sec High 10.2-12.0 20 Inr 1.6 % Low 2.0-3.0 Lipid Treatment 05/02/2014 [facility] Cholesterol 203 mg/dL High 50-199 Triglycerides 82 mg/dL 30-200 HDL 57 mg/dL 21 Chol/ HDL Ratio 3.6 ratio Low 4.0-6.7 VLDL 16 mg/dL 2-29 LDL (Calc) 130 mg/dL High - 22 Alt 17 U/L 3-42 Ast 15 U/L 8-42 Laboratory test 05/02/2014 [facility] PSA 0.830 ng/mL 0.000-4.000 23 finding Protime 03/09/2014 [facility] Prothrombin Time 17.4 sec High 10.2-12.0 24 Inr 1.7 % Low 2.0-3.0 Protime 11/23/2013 [facility] Prothrombin Time 22.3 sec High 10.2-12.0 Inr 2.1 % 2.0-3.0 Protime 06/27/2013 [facility] Prothrombin Time 29.7 sec High 10.2-12.0 Inr 2.6 % 2.0-3.0 Protime 2013 [facility] Prothrombin Time 35.7 sec High 10.2-12.0 Inr 3.1 % High 2.0-3.0 Protime 02/22/2013 [facility] Prothrombin Time 15.4 sec High 10.2-12.0 Inr 1.4 % Low 2.0-3.0 Lipid Treatment 10/13/2012 [facility] Cholesterol 201 mg/dL High 50-199 25 Triglycerides 224 mg/dL High 30-200 HDL 42 mg/dL 26 Chol/ HDL Ratio 4.8 ratio 4.0-6.7 VLDL 45 mg/dL High 2-29 LDL (Calc) 114 mg/dL High -99 27 Alt 29 U/L 3-42 Ast 17 U/L 8-42 Protime 10/13/2012 [facility] Prothrombin Time 27.1 sec High 10.2-12.0 Inr 2.4 % 2.0-3.0 Laboratory test finding 10/13/2012 [facility] PSA 0.83 ng/mL 0.00-4.00 28 Basic (BMP) 10/13/2012 [facility] Sodium 142 mmol/L 134-142 Potassium 4.6 mmol/L 3.5-5.2 Chloride 107 mmol/L 97-109 Carbon Dioxide 28 mmol/L 24-34 Glucose 137 mg/dL High 70-105 BUN 18 mg/dL 6-26 Creatinine 0.9 mg/dL 0.5-1.4 Calcium 9.5 mg/dL 8.5-10.2 Anion Gap 12 mmol/L 6-14 Non Meenakshi Egfr >60 >60 29 Meenakshi Egfr >60 >60 30 CBC With Auto Diff 10/13/2012 [facility] WBC 4.7 K/uL 4.1-11.0 RBC 4.46 M/uL Low 4.60-6.10 Hemoglobin 14.1 gm/dL 13.5-18.0 Hematocrit 42.9 % 41.0-53.0 MCV 96.2 fL 80.0-97.0 MCH 31.7 pg 27.0-32.0 MCHC 32.9 g/dL 32.0-36.0 RDW 13.4 % 11.5-14.5 PLT Count 208 K/ul 140-400 Neutrophil 51.2 % 35.0-75.0 Lymphocyte 37.6 % 16.0-52.0 Monocyte 8.2 % 2.0-10.0 Eosinophil 2.3 % 0.0-5.0 Basophil 0.7 % 0.0-4.0 Abs Neutrophils 2.4 K/uL 2.1-8.0 Abs Lymphocytes 1.8 K/uL 0.8-5.5 Abs Monocytes 0.4 K/uL 0.1-1.0 Abs Eosinophils 0.1 K/uL 0.0-0.5 Abs Basophils 0.0 K/uL 0.0-0.3 CBC With Auto Diff 08/01/2009 [facility] (Do not Use) WBC 5.2 K/ul 4.0- 10.9 31 [facility] [place], [place] [id number] [phone] RBC 4.41 M/ul Low 4.70-6.10 Hemoglobin 14.6 GM/dl 13.5-18.0 Hematocrit 42.6 % 42.0-52.0 MCV 96.6 FL 80.0-97.0 MCH 33.0 pg High 27.0-31.0 MCHC 34.2 g/dL 32.0-36.0 RDW 12.8 % 11.5-14.5 Platelet Count 198 K/ul 140-440 Neutrophils 47.8 % Low 50-70 Lymphocytes 37.8 % 20-44 Monocytes 10.2 % High 2-9 Eosinophil 3.6 % 0-4 Basophil 0.6 % 0-2 Absolute Neutrophils 2.5 K/ul 2.05-7.63 Absolute Lymphocytes 2.0 K/ul 0.8-4.8 Absolute Monocytes 0.5 K/ul 0.1-1.0 Absolute Eosinophils 0.2 K/ul 0.1-0.5 Absolute Basophils 0.0 K/ul 0.0-0.3 Hematology Comment (Comm2) N/A Laboratory test 08/01/2009 [facility] (Do not Use) PSA 0.55 ng/ml 0.00- 4.00 32 finding [facility] [place] [address] [phone] Laboratory test 08/01/2009 [facility] (Do not Use) Vitamin D, 27 ng/mL Low 31-100 finding [facility] [address] [place] [address] [phone] CMP 08/01/2009 [facility] (Do not Use) Sodium 138 mmol/L 135-144 [facility] [place] [address] [phone] Potassium 5.2 mmol/L 3.6-5.2 Chloride 104 mmol/L 97-110 Carbon Dioxide 28 mmol/L 23-32 Glucose 80 mg/dL 70-105 BUN 18 mg/dL 6-22 Creatinine 1.0 mg/dL 0.5-1.3 BUN/CR 18 Ratio Calcium 9.4 mg/dL 8.6-10.2 Total Protein 6.6 g/dL 5.8-7.8 Albumin 4.0 g/dL 3.5-4.8 Globulin 2.6 g/dL 2.0-3.5 A/G Ratio 1.5 Ratio 1.0-2.2 Total Bilirubin 0.7 mg/dL 0.3-1.2 Alkaline Phosphatase 46 U/L 24-140 Alt 35 U/L 5-45 Ast 26 U/L 12-40 Anion Gap 11 mmol/L 8-16 GFR Calculation > 60 mL/min 60-175 33 GFR For > 60 mL/min 60-175 34 Lipid Panel 08/01/2009 [facility] (Do not Use) Cholesterol 216 mg/dL High 50-199 [place] [address] [phone] Triglycerides 212 mg/dL High 10-150 HDL 41 mg/dL 29-71 35 Chol/HDL Ratio 5.3 Ratio 4.0-6.7 36 VLDL 42 mg/dL High 2-29 LDL (Calc) 133 mg/dL High 20-129 37 PT And 10/06/2008 [facility] (Do not Use) Prothrombin Time 16.7 SEC High 10.2-12.0 38, 39 [place] [address] [phone] Inr 1.54 Low 2.00-3.0 40 PT And 07/24/2008 [facility] (Do not Use) Prothrombin Time 18.9 SEC High 10.2-12.0 41, [address] [place] [address] [phone] Inr 1.75 Low 2.00-3.0 43 PT And Inr 06/18/2006 [facility] (Do not Use) Prothrombin Time 18.7 SEC High 10.5-12.2 [place] [address] [phone] Inr 2.49 2.00-3.0 44 PT And Inr 03/09/2006 [facility] (Do not Use) Prothrombin Time 21.5 SEC High 10.5-12.2 [place] [address] [phone] Inr 3.22 High 2.00-3.0 45 PT And Inr 02/24/2006 [facility] (Do not Use) Prothrombin Time DELETED SEC 10.5-12.2 [address] [id number] [phone] Inr DELETED 2.00-3.0 47 PT And Inr 12/02/2005 [facility] (Do not Use) Prothrombin Time 16.6 SEC High 10.5-12.2 [place] [address] [phone] Inr 2.02 2.00-3.0 48 PT And Inr 09/09/2005 [facility] (Do not Use) Prothrombin Time 16.8 SEC High 10.5-12.2 [place], [place] [id number] [phone] Inr 2.03 2.00-3.0 49 PT And Inr 06/04/2005 [facility] (Do not Use) Prothrombin Time 16.9 SEC High 10.5-12.2 [facility] [place] [address] [phone] Inr 2.06 2.00-3.0 50 Lipid Panel 11/18/2004 [facility] (Do not Use) Cholesterol 243 mg/dL High 50-199 [facility] [place] [address] [phone] Triglycerides 210 mg/dL High 30-200 HDL 49 mg/dL 29-71 Chol/HDL Ratio 5.0 Ratio VLDL 42 mg/dL LDL (Calc) 152 mg/dL High 20-129 PT And Inr 11/18/2004 [facility] (Do not Use) Prothrombin Time 18.2 SEC High 10.5-12.2 [facility] [place] [address] [phone] Inr 2.35 2.00-3.0 51 Laboratory 11/18/2004 [facility] (Do not Use) PSA 0.51 0.00-4.00 52 test finding [facility] ng/[place] [address] [phone] PT And Inr 10/23/2004 [facility] (Do not Use) Prothrombin 18.3 SEC High 10.5-12.2 [facility] [place] [address] [phone] Inr 2.37 2.00-3.0 53 PT And Inr 09/25/2004 [facility] (Do not Use) Prothrombin Time 16.5 SEC High 10.5-12.2 [facility] [place] [address] [phone] Inr 1.97 Low 2.00-3.0 54 PT And Inr 08/21/2004 [employer] (Do not Use) Prothrombin Time 17.3 SEC High 10.5-12.2 55 [facility] [place] [address] [phone] Inr 2.15 2.00-3.0 56 Lipid TX Panel 08/21/2004 [employer] (Do not Use) Ast DELETED U/L 8-42 [facility] [place] [address] [phone] Alt DELETED U/L 3-42 Cholesterol DELETED mg/dL 50-199 Triglycerides DELETED mg/dL 30-200 HDL DELETED mg/dL - LDL (Calc) DELETED mg/dL 20-129 Chol/HDL Ratio DELETED Ratio VLDL DELETED mg/dL PT And Inr 07/16/2004 [employer] (Do not Use) Prothrombin Time 18.5 SEC High 10.5-12.2 [facility] [place] [address] [phone] Inr 2.42 2.00-3.0 57 PT And Inr 05/02/2004 [employer] (Do not Use) Prothrombin Time 18.1 SEC High 10.5-12.2 [facility] [place] [address] [phone] Inr 2.33 2.00-3.0 58 PT And Inr 11/23/2003 [employer] (Do not Use) Prothrombin Time 15.8 SEC High 10.5-12.2 [facility] [place] [address] [phone] Inr 1.98 Low 2.00-3.0 59 CMP 10/04/2003 [employer] (Do not Use) Sodium 144 mmol/L 135-145 [facility] [place] [address] [phone] Potassium 4.8 mmol/L 3.4-5.3 Chloride 110 mmol/L 98-111 Carbon Dioxide 26 mmol/L 22-33 Glucose 80 mg/dL 70-105 BUN 15 mg/dL 6-26 Creatinine 0.9 mg/dL 0.5-1.5 BUN/CR 17 Ratio 12.0-20.0 Calcium 9.1 mg/dL 8.6-10.3 Total Protein 6.9 g/dL 6.2-8.3 Albumin 4.1 g/dL 3.5-5.0 Globulin 2.8 g/dL 2.7-4.3 A/G Ratio 1.5 Ratio 1.0-2.2 Total Bilirubin 1.0 mg/dL 0.1-1.3 Ast 20 U/L 8-42 Alt 20 U/L 3-42 Alkaline Phosphatase 47 U/L 24-108 Anion Gap 13 mmol/L 10-20 Lipid Panel 10/04/2003 [employer] (Do not Use) Cholesterol 223 mg/dL High 50-199 [facility] [place] [address] [phone] Triglycerides 132 mg/dL 30-200 HDL 45 mg/dL 29-71 Chol/HDL Ratio 5.0 Ratio VLDL 26 mg/dL LDL (Calc) 152 mg/dL High 20-129 PT And Inr 09/25/2003 [employer] (Do not Use) Prothrombin Time 16.9 SEC High 10.5-12.2 [facility] [place] [address] [phone] Inr 2.28 2.00-3.0 60 PT And Inr 08/02/2003 [employer] (Do not Use) Prothrombin Time 15.7 SEC High 10.5-12.2 [facility] [place] [address] [phone] Inr 1.94 Low 2.00-3.0 61 PT And Inr 07/12/2003 [employer] (Do not Use) Prothrombin Time 15.7 SEC High 10.5-12.2 [facility] [place] [address] [phone] Inr 1.94 Low 2.00-3.0 62 PT And Inr 12/15/2002 [employer] (Do not Use) Prothrombin Time 17.7 SEC High 10.5-12.2 [facility] [place] [address] [phone] Inr 2.49 2.00-3.0 63 PT And Inr 11/01/2002 [employer] (Do not Use) Prothrombin Time 13.0 SEC High 10.5-12.2 [facility] [place] [address] [phone] Inr 1.34 Low 2.00-3.0 64 PT And Inr 08/24/2001 [employer] (Do not Use) Prothrombin Time 13.7 SEC High 10.5-12.2 [facility] [place] [id number] [phone] Inr 1.50 Low 2.00-3.0 65 PT And Inr 06/27/2001 [employer] (Do not Use) Prothrombin Time 15.1 SEC High 10.1-11.8 [facility] [place] [address] [phone] Inr 2.02 2.00-3.0 66 PT And Inr 05/12/2001 [employer] (Do not Use) Prothrombin Time 13.9 SEC High 10.1-11.8 [facility] [place] [address] [phone] Inr 1.70 Low 2.00-3.0 67 1 This sample is drawn by:GIULIA/YAKELIN 2 This sample is drawn by:BRUNA/JAY JAY 3 Updated reference range on new analyzer 4 Updated reference range on new analyzer 5 Concerning GFR Guidelines for Americans: Normal function or mild renal disease, if clinically at risk: >/=60 mL/min Moderately decreased: 30-59 Severely decreased: 15-29 Renal failure: <15 6 Concerning GFR Guidelines: Normal function or mild renal disease, if clinically at risk: >/=60 mL/min Moderately decreased: 30-59 Severely decreased: 15-29 Renal failure: <15 Glomerular Filtration Rate (GFR) is estimated based on the MDRD equation, which assumes a steady state for creatinine as recommended by the National Kidney Disease Education Program in conjunction with the National Institutes of Health and the National Kidney Foundation. Clinical conditions in which it may be necessary to measure GFR by using clearance methods include extremes of age and body size, severe malnutrition or obesity, diseases of skeletal muscle, paraplegia or quadriplegia, vegetarian diet, rapidly changing kidney function, and calculation of the dose of potentially toxic drugs that are excreted by the kidneys. 7 Updated reference range on new analyzer 8 This sample is drawn by:CLAIRE/YAKELIN 9 Beginning 06/15/06 PSA values assayed at [facility] uses chemiluminescence methodology manufactured by [employer] for use on the DXI analyzer. Values obtained with different assay methods or kits can not be used interchangeably. Serum PSA measurement is not an absolute test for malignancy. The PSA value should be used in conjunction with information available from clinical evaluation and other diagnostic procedures. 10 Per NCEP ATP III Guidelines: Results lower than 40 mg/dL are suggestive of increased risk for coronary artery disease. Results > or=to 60 mg/dL are considered a negative risk factor. 11 Per NCEP ATP III Guidelines: Normal Population <130 Patients with medical conditions: CHD/DM Optimal: <100 Borderline high: 130-159 High: 160-189 Very high: >189 12 Concerning GFR Guidelines for Americans: Normal function or mild renal disease, if clinically at risk: >/=60 mL/min Moderately decreased: 30-59 Severely decreased: 15-29 Renal failure: <15 13 Concerning GFR Guidelines: Normal function or mild renal disease, if clinically at risk: >/=60 mL/min Moderately decreased: 30-59 Severely decreased: 15-29 Renal failure: <15 Glomerular Filtration Rate (GFR) is estimated based on the MDRD equation, which assumes a steady state for creatinine as recommended by the National Kidney Disease Education Program in conjunction with the National Institutes of Health and the National Kidney Foundation. Clinical conditions in which it may be necessary to measure GFR by using clearance methods include extremes of age and body size, severe malnutrition or obesity, diseases of skeletal muscle, paraplegia or quadriplegia, vegetarian diet, rapidly changing kidney function, and calculation of the dose of potentially toxic drugs that are excreted by the kidneys. 14 This sample is drawn by:DILSHAD 15 Beginning 06/15/06 PSA values assayed at [facility] uses an EIA methodology manufactured by [employer] for use on the DXI analyzer. Values obtained with different assay methods or kits can not be used interchangeably. Serum PSA measurement is not an absolute test for malignancy. The PSA value should be used in conjunction with information available from clinical evaluation and other diagnostic procedures. 16 Per NCEP ATP III Guidelines: Results lower than 40 mg/dL are suggestive of increased risk for coronary artery disease. Results > or=to 60 mg/dL are considered a negative risk factor. 17 Per NCEP ATP III Guidelines: Normal Population <130 Patients with medical conditions: CHD/DM Optimal: <100 Borderline high: 130-159 High: 160-189 Very high: >189 18 Concerning GFR Guidelines for Americans: Normal function or mild renal disease, if clinically at risk: >/=60 mL/min Moderately decreased: 30-59 Severely decreased: 15-29 Renal failure: <15 19 Concerning GFR Guidelines: Normal function or mild renal disease, if clinically at risk: >/=60 mL/min Moderately decreased: 30-59 Severely decreased: 15-29 Renal failure: <15 Glomerular Filtration Rate (GFR) is estimated based on the MDRD equation, which assumes a steady state for creatinine as recommended by the National Kidney Disease Education Program in conjunction with the National Institutes of Health and the National Kidney Foundation. Clinical conditions in which it may be necessary to measure GFR by using clearance methods include extremes of age and body size, severe malnutrition or obesity, diseases of skeletal muscle, paraplegia or quadriplegia, vegetarian diet, rapidly changing kidney function, and calculation of the dose of potentially toxic drugs that are excreted by the kidneys. 20 This sample is drawn by:claire/yakelin 21 Per NCEP ATP III Guidelines: Results lower than 40 mg/dL are suggestive of increased risk for coronary artery disease. Results > or=to 60 mg/dL are considered a negative risk factor. 22 Per NCEP ATP III Guidelines: Normal Population <130 Patients with medical conditions: CHD/DM Optimal: <100 Borderline high: 130-159 High: 160-189 Very high: >189 23 Beginning 06/15/06 PSA values assayed at [facility] uses an EIA methodology manufactured by [employer] for use on the DXI analyzer. Values obtained with different assay methods or kits can not be used interchangeably. Serum PSA measurement is not an absolute test for malignancy. The PSA value should be used in conjunction with information available from clinical evaluation and other diagnostic procedures. 24 This sample is drawn by:DILSHAD 25 This sample is drawn by:TIAGO ORELLANA. BRUNA/JAY JAY 26 Per NCEP ATP III Guidelines: Results lower than 40 mg/dL are suggestive of increased risk for coronary artery disease. Results > or=to 60 mg/dL are considered a negative risk factor. 27 Per NCEP ATP III Guidelines: Optimal: <100 Near optimal: 100-129 Borderline high: 130-159 High: 160-189 Very high: >189 28 Beginning 06/15/06 PSA values assayed at [facility] uses an EIA methodology manufactured by [employer] for use on the DXI analyzer. Values obtained with different assay methods or kits can not be used interchangeably. Serum PSA measurement is not an absolute test for malignancy. The PSA value should be used in conjunction with information available from clinical evaluation and other diagnostic procedures. 29 Concerning GFR Guidelines: Normal function or mild renal disease, if clinically at risk: >/=60 mL/min Moderately decreased: 30-59 Severely decreased: 15-29 Renal failure: <15 Glomerular Filtration Rate (GFR) is estimated based on the MDRD equation, which assumes a steady state for creatinine as recommended by the National Kidney Disease Education Program in conjunction with the National Institutes of Health and the National Kidney Foundation. Clinical conditions in which it may be necessary to measure GFR by using clearance methods include extremes of age and body size, severe malnutrition or obesity, diseases of skeletal muscle, paraplegia or quadriplegia, vegetarian diet, rapidly changing kidney function, and calculation of the dose of potentially toxic drugs that are excreted by the kidneys. 30 Concerning GFR Guidelines for Americans: Normal function or mild renal disease, if clinically at risk: >/=60 mL/min Moderately decreased: 30-59 Severely decreased: 15-29 Renal failure: <15 31 This sample is drawn by:JAY JAY ANN 32 BEGINNING 06/15/06, PSA VALUES ASSAYED AT [facility] USES AN EIA METHODOLOGY MANUFACTURED BY [employer] FOR USE ON THE DXI ANALYZER. VALUES OBTAINED WITH DIFFERENT ASSAY METHODS OR KITS CAN NOT BE USED INTERCHANGEABLY. SERUM PSA MEASUREMENT IS NOT AN ABSOLUTE TEST FOR MALIGNANCY, THE PSA VALUE SHOULD BE USED IN CONJUNCTION WITH INFORMATION AVAILABLE FROM CLINICAL EVALUATION AND OTHER DIAGNOSTIC PROCEDURES. 33 Concerning GFR GUIDELINES: Normal Function or Mild Renal Disease, if clinically at risk: >/=60mL/min Moderately decreased: 30-59 Severely decreased: 15-29 Renal Failure: <15 Glomerular Filtration Rate (GFR) is estimated based on the MDRD equation, which assumes a steady state for creatinine as recommended by the National Kidney Disease Education Program in conjunction with the National Institutes of Health and the National Kidney Foundation. Clinical conditions in which it may be necessary to measure GFR by using clearance methods include extremes of age and body size, severe malnutrition or obesity, diseases of skeletal muscle, paraplegia or quadriplegia, vegetarian diet, rapidly changing kidney function, and calculation of the dose of potentially toxic drugs that are excreted by the kidneys. 34 Concerning GFR GUIDELINES: Normal Function or Mild Renal Disease, if clinically at risk: >/=60mL/min Moderately decreased: 30-59 Severely decreased: 15-29 Renal Failure: <15 35 PER NCEP ATP III GUIDELINES: RESULTS LOWER THAN 40 MG/DL ARE SUGGESTIVE OF INCREASED RISK FOR CORONARY ARTERY DISEASE. RESULTS > OR=TO 60 MG/DL ARE CONSIDERED A NEGATIVE RISK FACTOR. 36 INTERPRETATION OF CHOL-HDL RATIO CHD RISK FEMALE MALE VERY HIGH >8.3 >14.3 HIGH 5.6 - 8.3 6.7 - 14.3 AVERAGE 3.7 - 5.6 4.0 - 6.7 BELOW AVERAGE 2.5 - 3.7 2.7 - 4.0 PROTECTED <2.5 <2.7 37 PER NCEP ATP III GUIDELINES: OPTIMAL: <100 NEAR OPTIMAL: 100 - 129 BORDERLINE HIGH: 130 - 159 HIGH: 160 - 189 VERY HIGH: >189 38 This sample is drawn by:JAY JAY ANN PT STATES HE TAKES 15 MG COUMADIN QD 39 Effective 06/19/08, the analyzer and reagent package for the prothombin times have changed. The equivalent protime result in "seconds: will be higher by this new assay package. 40 Due to a change in method and reagent on 06/19/08 the mean of the normal range has changed slightly. Since this is used in the calculation of the INR, the resulting INR may be slightly different than the patient's previous history. IT MUST BE STRESSED THAT THE INR IS SPECIFICALLY INTENDED FOR ASSESSING PATIENTS STABILIZED ON LONG-TERM ANTICOAGULANT THERAPY. THE RECOMMENDED THERAPEUTIC RANGE FOR: MOST PATIENTS ON COUMADIN INR: 2.0 - 3.0 PROPHYLAXIS/TREATMENT OF VENOUS THROMBOSIS PROPHYLAXIS/TREATMENT OF PULMONARY EMBOLIS PROSTHETIC HEART VALVES INR: 2.5 - 3.5 RECURRENT SYSTEMIC EMBOLISM 41 This sample is drawn by:JAY JAY ANN 42 Effective 06/19/08, the analyzer and reagent package for the prothombin times have changed. The equivalent protime result in "seconds: will be higher by this new assay package. 43 Due to a change in method and reagent on 06/19/08 the mean of the normal range has changed slightly. Since this is used in the calculation of the INR, the resulting INR may be slightly different than the patient's previous history. IT MUST BE STRESSED THAT THE INR IS SPECIFICALLY INTENDED FOR ASSESSING PATIENTS STABILIZED ON LONG-TERM ANTICOAGULANT THERAPY. THE RECOMMENDED THERAPEUTIC RANGE FOR: MOST PATIENTS ON COUMADIN INR: 2.0 - 3.0 PROPHYLAXIS/TREATMENT OF VENOUS THROMBOSIS PROPHYLAXIS/TREATMENT OF PULMONARY EMBOLIS PROSTHETIC HEART VALVES INR: 2.5 - 3.5 RECURRENT SYSTEMIC EMBOLISM 44 IT MUST BE STRESSED THAT THE INR IS SPECIFICALLY INTENDED FOR ASSESSING PATIENTS STABILIZED ON LONG-TERM ANTICOAGULANT THERAPY. THE RECOMMENDED THERAPEUTIC RANGE FOR: MOST PATIENTS ON COUMADIN INR: 2.0 - 3.0 PROPHYLAXIS/TREATMENT OF VENOUS THROMBOSIS PROPHYLAXIS/TREATMENT OF PULMONARY EMBOLIS PROSTHETIC HEART VALVES INR: 2.5 - 3.5 RECURRENT SYSTEMIC EMBOLISM 45 IT MUST BE STRESSED THAT THE INR IS SPECIFICALLY INTENDED FOR ASSESSING PATIENTS STABILIZED ON LONG-TERM ANTICOAGULANT THERAPY. THE RECOMMENDED THERAPEUTIC RANGE FOR: MOST PATIENTS ON COUMADIN INR: 2.0 - 3.0 PROPHYLAXIS/TREATMENT OF VENOUS THROMBOSIS PROPHYLAXIS/TREATMENT OF PULMONARY EMBOLIS PROSTHETIC HEART VALVES INR: 2.5 - 3.5 RECURRENT SYSTEMIC EMBOLISM 46 SPECIMEN QNS Test deleted. Reason: QNS 47 IT MUST BE STRESSED THAT THE INR IS SPECIFICALLY INTENDED FOR ASSESSING PATIENTS STABILIZED ON LONG-TERM ANTICOAGULANT THERAPY. THE RECOMMENDED THERAPEUTIC RANGE FOR: MOST PATIENTS ON COUMADIN INR: 2.0 - 3.0 PROPHYLAXIS/TREATMENT OF VENOUS THROMBOSIS PROPHYLAXIS/TREATMENT OF PULMONARY EMBOLIS PROSTHETIC HEART VALVES INR: 2.5 - 3.5 RECURRENT SYSTEMIC EMBOLISM 48 IT MUST BE STRESSED THAT THE INR IS SPECIFICALLY INTENDED FOR ASSESSING PATIENTS STABILIZED ON LONG-TERM ANTICOAGULANT THERAPY. THE RECOMMENDED THERAPEUTIC RANGE FOR: MOST PATIENTS ON COUMADIN INR: 2.0 - 3.0 PROPHYLAXIS/TREATMENT OF VENOUS THROMBOSIS PROPHYLAXIS/TREATMENT OF PULMONARY EMBOLIS PROSTHETIC HEART VALVES INR: 2.5 - 3.5 RECURRENT SYSTEMIC EMBOLISM 49 IT MUST BE STRESSED THAT THE INR IS SPECIFICALLY INTENDED FOR ASSESSING PATIENTS STABILIZED ON LONG-TERM ANTICOAGULANT THERAPY. THE RECOMMENDED THERAPEUTIC RANGE FOR: MOST PATIENTS ON COUMADIN INR: 2.0 - 3.0 PROPHYLAXIS/TREATMENT OF VENOUS THROMBOSIS PROPHYLAXIS/TREATMENT OF PULMONARY EMBOLIS PROSTHETIC HEART VALVES INR: 2.5 - 3.5 RECURRENT SYSTEMIC EMBOLISM 50 IT MUST BE STRESSED THAT THE INR IS SPECIFICALLY INTENDED FOR ASSESSING PATIENTS STABILIZED ON LONG-TERM ANTICOAGULANT THERAPY. THE RECOMMENDED THERAPEUTIC RANGE FOR: MOST PATIENTS ON COUMADIN INR: 2.0 - 3.0 PROPHYLAXIS/TREATMENT OF VENOUS THROMBOSIS PROPHYLAXIS/TREATMENT OF PULMONARY EMBOLIS PROSTHETIC HEART VALVES INR: 2.5 - 3.5 RECURRENT SYSTEMIC EMBOLISM 51 IT MUST BE STRESSED THAT THE INR IS SPECIFICALLY INTENDED FOR ASSESSING PATIENTS STABILIZED ON LONG-TERM ANTICOAGULANT THERAPY. THE RECOMMENDED THERAPEUTIC RANGE FOR: MOST PATIENTS ON COUMADIN INR: 2.0 - 3.0 PROPHYLAXIS/TREATMENT OF VENOUS THROMBOSIS PROPHYLAXIS/TREATMENT OF PULMONARY EMBOLIS PROSTHETIC HEART VALVES INR: 2.5 - 3.5 RECURRENT SYSTEMIC EMBOLISM 52 PSA VALUES ASSAYED AT [facility] USES AN EIA METHODOLOGY MANUFACTURED BY [employer] FOR USE ON THE NEXIA ANALYZER. VALUES OBTAINED WITH DIFFERENT ASSAY METHODS OR KITS CAN NOT BE USED INT ERCHANGEABLY. SERUM PSA MEASUREMENT IS NOT AN ABSOLUTE TEST FOR MALIGNANCY, THE PSA VALUE SHOULD BE USED IN CONJUNCTION WITH INFORMATION AVAILABLE FROM CLINICAL EVALUATION AND OTHER DIAGNOSTIC PROCEDURES. 53 IT MUST BE STRESSED THAT THE INR IS SPECIFICALLY INTENDED FOR ASSESSING PATIENTS STABILIZED ON LONG-TERM ANTICOAGULANT THERAPY. THE RECOMMENDED THERAPEUTIC RANGE FOR: MOST PATIENTS ON COUMADIN INR: 2.0 - 3.0 PROPHYLAXIS/TREATMENT OF VENOUS THROMBOSIS PROPHYLAXIS/TREATMENT OF PULMONARY EMBOLIS PROSTHETIC HEART VALVES INR: 2.5 - 3.5 RECURRENT SYSTEMIC EMBOLISM 54 IT MUST BE STRESSED THAT THE INR IS SPECIFICALLY INTENDED FOR ASSESSING PATIENTS STABILIZED ON LONG-TERM ANTICOAGULANT THERAPY. THE RECOMMENDED THERAPEUTIC RANGE FOR: MOST PATIENTS ON COUMADIN INR: 2.0 - 3.0 PROPHYLAXIS/TREATMENT OF VENOUS THROMBOSIS PROPHYLAXIS/TREATMENT OF PULMONARY EMBOLIS PROSTHETIC HEART VALVES INR: 2.5 - 3.5 RECURRENT SYSTEMIC EMBOLISM 55 Test deleted. Reason: ENTRY ERROR 56 IT MUST BE STRESSED THAT THE INR IS SPECIFICALLY INTENDED FOR ASSESSING PATIENTS STABILIZED ON LONG-TERM ANTICOAGULANT THERAPY. THE RECOMMENDED THERAPEUTIC RANGE FOR: MOST PATIENTS ON COUMADIN INR: 2.0 - 3.0 PROPHYLAXIS/TREATMENT OF VENOUS THROMBOSIS PROPHYLAXIS/TREATMENT OF PULMONARY EMBOLIS PROSTHETIC HEART VALVES INR: 2.5 - 3.5 RECURRENT SYSTEMIC EMBOLISM 57 IT MUST BE STRESSED THAT THE INR IS SPECIFICALLY INTENDED FOR ASSESSING PATIENTS STABILIZED ON LONG-TERM ANTICOAGULANT THERAPY. THE RECOMMENDED THERAPEUTIC RANGE FOR: MOST PATIENTS ON COUMADIN INR: 2.0 - 3.0 PROPHYLAXIS/TREATMENT OF VENOUS THROMBOSIS PROPHYLAXIS/TREATMENT OF PULMONARY EMBOLIS PROSTHETIC HEART VALVES INR: 2.5 - 3.5 RECURRENT SYSTEMIC EMBOLISM 58 IT MUST BE STRESSED THAT THE INR IS SPECIFICALLY INTENDED FOR ASSESSING PATIENTS STABILIZED ON LONG-TERM ANTICOAGULANT THERAPY. THE RECOMMENDED THERAPEUTIC RANGE FOR: MOST PATIENTS ON COUMADIN INR: 2.0 - 3.0 PROPHYLAXIS/TREATMENT OF VENOUS THROMBOSIS PROPHYLAXIS/TREATMENT OF PULMONARY EMBOLIS PROSTHETIC HEART VALVES INR: 2.5 - 3.5 RECURRENT SYSTEMIC EMBOLISM 59 IT MUST BE STRESSED THAT THE INR IS SPECIFICALLY INTENDED FOR ASSESSING PATIENTS STABILIZED ON LONG-TERM ANTICOAGULANT THERAPY. THE RECOMMENDED THERAPEUTIC RANGE FOR: MOST PATIENTS ON COUMADIN INR: 2.0 - 3.0 PROPHYLAXIS/TREATMENT OF VENOUS THROMBOSIS PROPHYLAXIS/TREATMENT OF PULMONARY EMBOLIS PROSTHETIC HEART VALVES INR: 2.5 - 3.5 RECURRENT SYSTEMIC EMBOLISM 60 IT MUST BE STRESSED THAT THE INR IS SPECIFICALLY INTENDED FOR ASSESSING PATIENTS STABILIZED ON LONG-TERM ANTICOAGULANT THERAPY. THE RECOMMENDED THERAPEUTIC RANGE FOR: MOST PATIENTS ON COUMADIN INR: 2.0 - 3.0 PROPHYLAXIS/TREATMENT OF VENOUS THROMBOSIS PROPHYLAXIS/TREATMENT OF PULMONARY EMBOLIS PROSTHETIC HEART VALVES INR: 2.5 - 3.5 RECURRENT SYSTEMIC EMBOLISM 61 IT MUST BE STRESSED THAT THE INR IS SPECIFICALLY INTENDED FOR ASSESSING PATIENTS STABILIZED ON LONG-TERM ANTICOAGULANT THERAPY. THE RECOMMENDED THERAPEUTIC RANGE FOR: MOST PATIENTS ON COUMADIN INR: 2.0 - 3.0 PROPHYLAXIS/TREATMENT OF VENOUS THROMBOSIS PROPHYLAXIS/TREATMENT OF PULMONARY EMBOLIS PROSTHETIC HEART VALVES INR: 2.5 - 3.5 RECURRENT SYSTEMIC EMBOLISM 62 IT MUST BE STRESSED THAT THE INR IS SPECIFICALLY INTENDED FOR ASSESSING PATIENTS STABILIZED ON LONG-TERM ANTICOAGULANT THERAPY. THE RECOMMENDED THERAPEUTIC RANGE FOR: MOST PATIENTS ON COUMADIN INR: 2.0 - 3.0 PROPHYLAXIS/TREATMENT OF VENOUS THROMBOSIS PROPHYLAXIS/TREATMENT OF PULMONARY EMBOLIS PROSTHETIC HEART VALVES INR: 2.5 - 3.5 RECURRENT SYSTEMIC EMBOLISM 63 IT MUST BE STRESSED THAT THE INR IS SPECIFICALLY INTENDED FOR ASSESSING PATIENTS STABILIZED ON LONG-TERM ANTICOAGULANT THERAPY. THE RECOMMENDED THERAPEUTIC RANGE FOR: MOST PATIENTS ON COUMADIN INR: 2.0 - 3.0 PROPHYLAXIS/TREATMENT OF VENOUS THROMBOSIS PROPHYLAXIS/TREATMENT OF PULMONARY EMBOLIS PROSTHETIC HEART VALVES INR: 2.5 - 3.5 RECURRENT SYSTEMIC EMBOLISM 64 IT MUST BE STRESSED THAT THE INR IS SPECIFICALLY INTENDED FOR ASSESSING PATIENTS STABILIZED ON LONG-TERM ANTICOAGULANT THERAPY. THE RECOMMENDED THERAPEUTIC RANGE FOR: MOST PATIENTS ON COUMADIN INR: 2.0 - 3.0 PROPHYLAXIS/TREATMENT OF VENOUS THROMBOSIS PROPHYLAXIS/TREATMENT OF PULMONARY EMBOLIS PROSTHETIC HEART VALVES INR: 2.5 - 3.5 RECURRENT SYSTEMIC EMBOLISM 65 IT MUST BE STRESSED THAT THE INR IS SPECIFICALLY INTENDED FOR ASSESSING PATIENTS STABILIZED ON LONG-TERM ANTICOAGULANT THERAPY. THE RECOMMENDED THERAPEUTIC RANGE FOR: MOST PATIENTS ON COUMADIN INR: 2.0 - 3.0 PROPHYLAXIS/TREATMENT OF VENOUS THROMBOSIS PROPHYLAXIS/TREATMENT OF PULMONARY EMBOLIS PROSTHETIC HEART VALVES INR: 2.5 - 3.5 RECURRENT SYSTEMIC EMBOLISM 66 IT MUST BE STRESSED THAT THE INR IS SPECIFICALLY INTENDED FOR ASSESSING PATIENTS STABILIZED ON LONG-TERM ANTICOAGULANT THERAPY. THE RECOMMENDED THERAPEUTIC RANGE FOR: MOST PATIENTS ON COUMADIN INR: 2.0 - 3.0 PROPHYLAXIS/TREATMENT OF VENOUS THROMBOSIS PROPHYLAXIS/TREATMENT OF PULMONARY EMBOLIS PROSTHETIC HEART VALVES INR: 2.5 - 3.5 RECURRENT SYSTEMIC EMBOLISM 67 IT MUST BE STRESSED THAT THE INR IS SPECIFICALLY INTENDED FOR ASSESSING PATIENTS STABILIZED ON LONG-TERM ANTICOAGULANT THERAPY. THE RECOMMENDED THERAPEUTIC RANGE FOR: MOST PATIENTS ON COUMADIN INR: 2.0 - 3.0 PROPHYLAXIS/TREATMENT OF VENOUS THROMBOSIS PROPHYLAXIS/TREATMENT OF PULMONARY EMBOLIS PROSTHETIC HEART VALVES INR: 2.5 - 3.5 RECURRENT SYSTEMIC EMBOLISM Procedures Date Code Description Status 05/03/2018 22043 Measure Blood Oxygen Level Single Determination Completed 01/21/2017 [id number] Colonoscopy Completed 04/26/2015 [id number] Admin Of Inj (Therapeutic Phrophylactic Or Diagnostic Completed Subq Inj 08/20/2009 66024 Measure Blood Oxygen Level Single Determination Completed 06/18/2006 07525 Electrocardiogram Complete Completed 05/02/2004 91814 Electrocardiogram Complete Completed 10/11/2003 03853 Excise Benign Lesion <.6CM Trunk/Arm/Leg Completed 07/17/2000 [id number] Electrocardiogram Complete Completed Encounters Type Date Location Provider Dx Diagnosis Office Visit 05/03/2018 Seun Escalante, I10 Essential (primary) 11:30a N.P. hypertension M54.5 Low back pain R68.84 Jaw pain Office Visit 06/15/2017 10:00a Seun Escalante, I10 Essential ( primary) N.P. 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 use of anticoagulants Z13.220 Encounter for screening for lipoid disorders Z12.5 Encounter for screening for malignant neoplasm of prostate Z11.59 Encounter for screening for other viral diseases M54.5 Low back pain Office Visit 11/06/2015 8:45a Seun Escalante Z79.01 roasterman (current) N.P. use of anticoagulants M54.5 Low back pain Office Visit 04/26/2015 10:30a Seun Escalante Z79.01 roasterman (current) N.P. use of anticoagulants R53.83 Other fatigue Z13.220 Encounter for screening for lipoid disorders Z12.5 Encounter for screening for malignant neoplasm of prostate M54.5 Low back pain Z23 Encounter for immunization Office Visit 01/24/2015 9:00a Seun Escalante Z23 Encounter for N.P. immunization M54.5 Low back pain Office Visit 08/22/2014 11:15a Seun Escalante, 382.9 Otitis Media Unspec N.P. Office Visit 05/02/2014 11:30a Seun Escalante V58.61 Anticoagulants Long N.P. Term (Current) Use Encounter 453.40 DVT/Embolism Lower Extremity NOS 272.0 Hypercholesterolemia Pure V76.44 Screening For Malig Vince Prostate Office Visit 06/27/2013 2:00p Mckinney Reynold, Mashelle, V58.61 Anticoagulants Long N.P. Term (Current) Use Encounter 847.1 Sprains & Strains Thoracic Office Visit 10/13/2012 9:45a Estevan Flaherty, 272.0 Hypercholesterolemia Pure Mashelle, N.P. 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 Hemorrhage Office Visit 02/03/2011 1:15p Seun Escalante, 724.5 Backache Unspec N.P. 728.71 Fibromatosis Plantar Fascia Office Visit 06/13/2010 3:45p Seun Escalante, 726.19 Shoulder Disorders N.P. Other Spec Office Visit 05/30/2010 3:45p Seun Escalante, V58.61 Anticoagulants Long N.P. Term (Current) Use Encounter 272.0 Hypercholesterolemia Pure Office Visit 08/20/2009 1:45p Estevan Flaherty, 461.0 Sinusitis Acute Maxillary Mashelle, N.P. Office Visit 08/01/2009 3:45p Estevan Flaherty, 272.0 Hypercholesterolemia Pure Mashelle, N.P. V58.61 Anticoagulants Retirement (Current) Use Encounter 296.31 Depressive Disorder Major Recurrent Mild V76.44 Screening For Malig Vince Prostate Office Visit 11/29/2008 2:45p Estevan Flaherty, 272.0 Hypercholesterolemia Pure Mashelle, N.P. Office Visit 11/01/2008 3:15p Estevan Flaherty, 785.1 Palpitations Mashelle, N.P. 780.2 Syncope & Collapse Office Visit 10/06/2008 8:00a Seun Escalante, N.P. 724.2 Lumbago V58.61 Anticoagulants Retirement (Current) Use Encounter Office Visit 07/24/2008 1:45p Seun Escalante, N.P. 724.2 Lumbago V58.61 Anticoagulants Retirement (Current) Use Encounter Office Visit 02/21/2008 3:45p Seun Escalante, V58.61 Anticoagulants Long N.P. Term (Current) Use Encounter 272.0 Hypercholesterolemia Pure 711.96 Arthritis Unspec Infective Lower Leg Office Visit 12/06/2007 3:45p Seun Escalante, 719.06 Effusion Joint N.P. 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 Term (Current) Use Encounter 785.1 Palpitations 681.11 Onychia & Paronychia Toe Office Visit 04/07/2006 4:00p Seun Escalante, 719.02 Effusion Joint N.P. Upper Arm 726.10 Bursae & Tendon Disorders Shoulder Region Unspec Office Visit 03/09/2006 2:30p Seun Escalante, V58.61 Anticoagulants Long N.P. Term (Current) Use Encounter 719.02 Effusion Joint Upper Arm Office Visit 09/09/2005 2:45p Seun Escalante, 786.6 Swelling Mass Or N.P. 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 Rotator Cuff (Capsule) 300.02 Anxiety Disorder Generalized 296.31 Depressive Disorder Major Recurrent Mild 726.10 Bursae & Tendon Disorders Shoulder Region Unspec Office Visit 06/05/2005 8:15a Suen Escalante, 300.02 Anxiety Disorder N.P. Generalized 465.9 URI Upper Respiratory Infections Acute Unspec Sites 296.31 Depressive Disorder Major Recurrent Mild 840.9 Sprains & Strains Shoulder & Upper Arm Unspec V58.61 Anticoagulants Retirement (Current) Use Encounter 780.4 Dizziness & Giddiness 381.01 Otitis Media Serous Acute Office Visit 12/03/2004 8:30a Estevan Flaherty, 272.0 Hypercholesterolemia Pure Seun, N.P. V58.61 Anticoagulants Retirement (Current) Use Encounter Office Visit 10/29/2004 1:00p Seun Escalante, V70.0 Exam (Adult ) N.P. General Medical Routine AT Health Care Facility Office Visit 09/25/2004 1:15p Rosy Naik 728.85 Spasm Muscle MD Robert V58.61 Anticoagulants Retirement (Current) Use Encounter Office Visit 05/02/2004 1:15p Seun Escalante, V58.61 Anticoagulants Long N.P. Term (Current) Use Encounter 785.1 Palpitations 780.4 Dizziness & Giddiness Office Visit 04/18/2004 3:00p Seun Escalante, 008.8 Enteritis Due To N.P. Other Organism Not Elsewhere Class 465.9 URI Upper Respiratory Infections Acute Unspec Sites Office Visit 01/23/2004 4:30p Seun Escalante V58.61 Anticoagulants Long N.P. Term (Current) Use Encounter 726.65 Bursitis Prepatellar 719.45 Pain Joint Pelvic Region & Thigh Office Visit 09/25/2003 1:00p Seun Escalante, V58.61 Anticoagulants Long N.P. Term (Current) Use Encounter V70.0 Exam (Adult) General Medical Routine AT Health Care Facility Office Visit 12/22/2002 4:00p Brendan Fortune, 250.00 Diabetes Mellitus W/O Compl Type II Or Unspec Controlled Office Visit 04/02/2001 3:00p Jay Paz MD Office Visit 07/17/2000 3:15p Jay Paz MD Plan of Treatment 11/16/2018 - Seun Flaherty, N.P.Z12.5 Encounter for screening for malignant neoplasm of prostateComments:f/u lab results report urinary symps should they mfedbU77.01 alf (current) use of anticoagulantsComments:pt enc to have INR drawn at least once a [id number] Essential (primary) hypertensionComments: stable with current meds. Cont same pt inst to monitor B/P at home/work 2-3 times per week and report abngoal: <140/90 5A's for Cardiovascular Disease Counseling 1. ASSESS: Patient has I10 Essential (primary) hypertension2. ADVISE: Discussed the importance of regular exercise, DASH diet, stress reduction, avoidance of NSAIDS and low cholesterol diet. Counseled on statin therapy. Aspirin use is not encouraged because risks outweigh the benefits.3. AGREE: Patient agrees to implement the modifications discussed today.4. ASSIST: Patient was offered nutritional therapy and provided information on the risks of cardiovascular disease.5. ARRANGE: We will follow- up at next visit to see howthe patient has implemented the above changes. Time spent counseling the patient on CVD is 8 minutes 10 minutes 15 minutes CVD Screening Completed (G0446)E66.9 Obesity, unspecifiedComments:health risks of obesity discussed with pt. instructed to decrease caloric intake, aerobic exercise, start slow as crskemrofC28.0 EpistaxisComments:apply bactroban ointment to bilateral nares at hs for 5 days and then q weekfollow-up with INR report tomorrowreturn here if nose bleeds gqqyubuM49.31 Encounter for screening for depressionComments:denies increased feelings depression/anxiety at this timeZ68.30 Body mass index (BMI) 30.0-30.9, adultComments:5A's for Obesity Counseling1. ASSESS: Patient presents with a BMI of 30.2, would like to discuss weight loss options.2. ADVISE: Discussed continuous churn buttermaker complications of obesity in particular increased riskfor development of diabetes and heat disease as well as the many health benefits that come with a healthy BMI.3. AGREE: Goal is 1 pound or better per week weight loss. The patient understands and agrees to the plan outlined today.4. ASSIST: Reduce caloric intake, reduce proportion of carbohydrates indiet, establish daily exercise pattern, keep food log.5. ARRANGE : Follow up scheduled in _3 mo___ toassess and adjust treatment plan if needed.Time spent counseling the patient on obesity is 15 minutes. Obesity Screening Completed (G0447)AllNew Medication:Mupirocin 2 % - apply to affected area twice a day
[2018-11-25 12:09] VITALS: BP 140/81
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
== END 2018-11-25 12:45 | disposition home or self-care (01) ==
LOC: UCEAST 11:48
DX: S80.12XA Contusion of left lower leg, initial encounter (principal); W22.8XXA Striking against or struck by other objects, initial encounter; Y92.9 Unspecified place or not applicable; Z87.891 Personal history of nicotine dependence
CPT/HCPCS: 99212; G0463

== ENCOUNTER 2019-01-08 21:02 | Emergency (ER) | payer BC ==
--- OUTSIDE RECORDS SUMMARY | 2019-01-08 21:11 | XMS REPORT | Continuity of Care Document ---
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 Onset: 05/30/2015 Angina pectoris Brendan Granda M.D., [facility], Onset: 06/15/2018 [facility] Social History Type Date Description Comments Sex Unknown Tobacco Use Start: Unknown End: Former Cigarette Smoker Unknown Smoking Status Reviewed: 12/22/18 Former Cigarette Smoker ETOH Use Denies alcohol [...] 1 po once daily Unknown 500mg Capsules Immunizations Description No Information Available Vital Signs Date Vital Result Comment 12/22/2018 11:08am Height 74 inches 6'2" Weight 233.00 lb BP Systolic 126 mmHg BP Diastolic 80 mmHg Pain Level 2 BMI (Body Mass Index) 29.9 kg/m2 11/22/2018 12:46pm Height 74 inches 6'2" Weight 233.00 lb BP Systolic Sitting 116 mmHg BP Diastolic Sitting 78 mmHg Pain Level 8 BMI (Body Mass Index) 29.9 kg/m2 Results Description No Information Available Procedures Description No Information Available Medical Devices Description No Information Available Encounters Type Date Location Provider Dx Diagnosis Office Visit 11/22/2018 [facility] JONATHAN Alaniz M54.5 Low back pain 1:30p [facility] Assessments Date Code Description Provider 11/22/2018 M54.5 Low back pain JONATHAN Alaniz Plan of Treatment Future Appointment(s):01/19/2019 12:00 pm - Bill Zuñiga MD at [facility] Functional Status Description No Information Available Mental Status Description No Information Available Referrals Description No Information Available
[2019-01-08 22:22] LABS: ABS Eosinophils 0.1 10^3/ul (0-0.6); ABS Lymphocytes 1.8 10^3/ul (1.0-4.8); ABS Monocytes 0.6 10^3/ul (0-0.8); ABS Neutrophils 3.4 10^3/ul (1.5-7.7); Eosinophil % 2.4 %; Hematocrit 41 % (42-52); Hemoglobin 13.9 g/dL (14.0-18.0); Lymphocyte % 30.3 %; Mean Corpuscular HGB Conc 34 g/dL (31-36); Mean Corpuscular Hemoglobin 32 pg (27-31); Mean Corpuscular Volume 95 fL (80-94); Platelet Count 179 10^3/uL (150-450); Red Blood Count 4.32 10^6 /uL (4.18-5.48); Red Cell Distribution Width 14 % (10-15); White Blood Count 6.1 10^3/uL (3.5-10.8)
[2019-01-08 22:30] LABS: Activated Partial Thrombo Time 49.8 seconds (26.0-38.0); INR 2.23 (0.82-1.09)
[2019-01-08 22:39] LABS: Albumin 4.3 g/dL (3.2-5.2); Albumin/Globulin Ratio 1.7 (1-3); BUN/Creatinine Ratio 18.7 (8-20); Calcium 9.2 mg/dL (8.6-10.3); EGFR African American 101.5 (>60); EGFR Non-African American 83.9 (>60); Globulin 2.5 g/dL (2-4); Potassium 4.4 mmol/L (3.5-5.0); Total Bilirubin 0.5 mg/dL (0.2-1.0); Total Protein 6.8 g/dL (6.4-8.9)
[2019-01-08] MEDS ORDERED: Lidocaine 2% JELLY* 10 ML JELLY TOPICAL ONE (23:13)
[2019-01-08] MEDS ORDERED: Oxymetazoline 0.05% NASAL SPR* 15 ML BTL LEFT NARE ONE (23:14)
[2019-01-08] MEDS ORDERED: Lidocaine 2% JELLY* 6 ML JELLY TOPICAL ONE (23:30)
--- NOTE | 2019-01-09 00:34 | ED ---
Throat Pain/Nasal Congestion - HPI Summary HPI Summary: 63-year-old male presents with nosebleed for the past couple hours. He states that his left nostril has been bleeding. It stopped bleeding about 30 minutes ago and has not re-bled. He is on Coumadin for PEs. Denies any dizziness. No chest pain or shortness of breath. States he's been having recurrent nosebleeds for the past 2 months always from the left nostril. He states he saw his primary that started him on some medication but does not seem to be working. - History of Current Complaint Chief Complaint: EDEpistaxis Time Seen by Provider: 01/08/19 22:59 - Allergies/Home Medications Allergies/Adverse Reactions: Allergies Allergy/AdvReac Type Severity Reaction Status Date / Time No Known Allergies Allergy Verified 01/08/19 21:05 PMH/Surg Hx/FS Hx/Imm Hx Endocrine/Hematology History: Reports: Hx Anticoagulant Therapy Denies: Hx Diabetes, Hx Thyroid Disease Cardiovascular History: Reports: Hx Angina Denies: Hx Coronary Artery Disease, Hx Hypercholesterolemia, Hx Hypertension , Hx Myocardial Infarction, Hx Pacemaker/ICD, Hx Valvular Heart Disease Respiratory History: Reports: Other Respiratory Problems/Disorders - PULMONARY EMBOLISM Denies: Hx Asthma, Hx Chronic Obstructive Pulmonary Disease (COPD) GI History: Denies: Hx Ulcer History: Denies: Hx Dialysis, Hx Renal Disease Musculoskeletal History: Denies: Hx Rheumatoid Arthritis, Hx Osteoporosis Sensory History: Reports: Hx Contacts or Glasses Denies: Hx Hearing Aid Opthamlomology History: Reports: Hx Contacts or Glasses Psychiatric History: Denies: Hx Panic Disorder - Surgical History Surgery Procedure, Year, and Place: LT INDEX FINGER - TENDON DISPOSITION FROM LEG TO FINGER - MICRO SURG Infectious Disease History: No Infectious Disease History: Denies: Hx Hepatitis, Hx Human Immunodeficiency Virus (HIV), History Other Infectious Disease, Traveled Outside the [place] in Last 30 Days - Family History Known Family History: Positive: Cardiac Disease - mom - [place], Non-Contributory - Social History Alcohol Use: None Hx Substance Use: No Substance Use Type: Reports: None Hx Tobacco Use: Yes Smoking Status (MU): Former Smoker Review of Systems Negative: Fever Positive: Epistaxis Negative: Chest Pain Negative: Shortness Of Breath All Other Systems Reviewed And Are Negative: Yes Physical Exam Triage Information Reviewed: Yes Vital Signs On Initial Exam: Initial Vitals Temp Pulse Resp BP Pulse Ox 98.3 F 74 15 153/82 97 01/08/19 21:04 01/08/19 21:04 01/08/19 21:04 01/08/19 21:04 01/08/19 21:04 Vital Signs Reviewed: Yes Appearance: Positive: Well-Appearing Skin: Positive: Warm, Dry Head/Face: Positive: Normal Head/Face Inspection Eyes: Positive: Normal, EOMI, PLACIDO, Conjunctiva Clear ENT: Positive: Normal ENT inspection, Pharynx normal, TMs normal, Other - no active bleeding left nostril, red irriated mucosa Respiratory/Lung Sounds: Positive: Clear to Auscultation, Breath Sounds Present Cardiovascular: Positive: Normal, RRR Musculoskeletal: Positive: Normal Neurological: Positive: Normal Psychiatric: Positive: Normal Diagnostics - Vital Signs Vital Signs Temp Pulse Resp BP Pulse Ox 01/08/19 21:04 98.3 F 74 15 153/82 97 - Laboratory Lab Results: Lab Results 01/08/19 01/08/19 01/08/19 Range/Units 22:10 22:10 22:11 WBC 6.1 (3.5-10.8) 10^3/uL RBC 4.32 (4.18-5.48) 10^6 /uL Hgb 13.9 L (14.0-18.0) g/dL Hct 41 L (42-52) % MCV 95 H (80-94) fL MCH 32 H (27-31) pg MCHC 34 (31-36) g/dL RDW 14 (10-15) % Plt Count 179 (150-450) 10^3/uL MPV 9.0 (7.4-10.4) fL Neut % (Auto) 56.5 % Lymph % (Auto) 30.3 % [place] % (Auto) 10.0 % Eos % (Auto) 2.4 % Baso % (Auto) 0.8 % Absolute Neuts (auto) 3.4 (1.5-7.7) 10^3/ul Absolute Lymphs (auto) 1.8 (1.0-4.8) 10^3/ul Absolute Monos (auto) 0.6 (0-0.8) 10^3/ul Absolute Eos (auto) 0.1 (0-0.6) 10^3/ul Absolute Basos (auto) 0.0 (0-0.2) 10^3/ul Absolute Nucleated RBC 0.0 10^3/ul Nucleated RBC % 0.0 INR (Anticoag Therapy) 2.23 H (0.82-1.09) APTT 49.8 H (26.0-38.0) seconds Sodium 140 (135-145) mmol/L Potassium 4.4 (3.5-5.0) mmol/L Chloride 107 (101-111) mmol/L Carbon Dioxide 30 (22-32) mmol/L Anion Gap 3 (2-11) mmol/L BUN 17 (6-24) mg/dL Creatinine 0.91 (0.67-1.17) mg/dL Est GFR ( Amer) 101.5 (>60) Est GFR (Non-Af Amer) 83.9 (>60) BUN/Creatinine Ratio 18.7 (8-20) Glucose 109 H (70-100) mg/dL Calcium 9.2 (8.6-10.3) mg/dL Total Bilirubin 0.50 (0.2-1.0) mg/dL AST 24 (13-39) U/L ALT 35 (7-52) U/L Alkaline Phosphatase 53 (34-104) U/L Total Protein 6.8 (6.4-8.9) g/dL Albumin 4.3 (3.2-5.2) g/dL Globulin 2.5 (2-4) g/dL Albumin/Globulin Ratio 1.7 (1-3) Result Diagrams: 01/08/19 22:11 01/08/19 22:10 Lab Statement: Any lab studies that have been ordered have been reviewed, and results considered in the medical decision making process. Re-Evaluation - Re-Evaluation First Eval Change: Improved Comment: no bleeding EENT Course/Dx - Course Course Of Treatment: 63-year-old male presents with nosebleed for the past couple hours. He states that his left nostril has been bleeding. It stopped bleeding about 30 minutes ago and has not re-bled. He is on Coumadin for PEs. Denies any dizziness. No chest pain or shortness of breath. States he's been having recurrent nosebleeds for the past 2 months always from the left nostril. He states he saw his primary that started him on some medication but does not seem to be working. On exam no active bleeding noted of left nostril. Patient is not tolerating well to see where bleeding coming from. Gave dosed Afrin and applied some lidocaine. Attempted to look for the bleeding source but unable to locate source of bleed although mucosa of nose is irritated. As has had no rebleeding in the past hour and half we will discharge. Told if bleeding continues to return. We'll have follow-up with ENT due to recurrent nosebleeds. Patient understands and agrees with plan. - Differential Diagnoses Differential Diagnoses: Epistaxis, Sinusitis, URI/Bronchitis - Diagnoses Provider Diagnoses: Epistaxis Discharge ED - Sign-Out/Discharge Documenting (check all that apply): Patient Departure Patient Received Moderate/Deep Sedation with Procedure: No - Discharge Plan Condition: Good Disposition: HOME Patient Education Materials: Nosebleed (ED) Referrals: Seun Flaherty NP [Primary Care Provider] - Isaac Kramer MD [Medical Doctor] - Additional Instructions: Apply nasal saline to nose follow up with ent Return to ED if area continues to bleed or any new or worsening symptoms - Billing Disposition and Condition Condition: GOOD Disposition: Home
[2019-01-09 01:05] VITALS: BP 0/0
== END 2019-01-09 00:50 | disposition home or self-care (01) ==
LOC: ED 21:02
DX: R04.0 Epistaxis (principal); Z79.01 Long term (current) use of anticoagulants; Z87.891 Personal history of nicotine dependence
CPT/HCPCS: 36415; 80053; 85025; 85610; 85730; 99282; A9270-GY

== ENCOUNTER 2022-12-08 06:01 | Observation (INO) ==
[~2022-12-08 06:01] MED LIST: Buffered Lidocaine 1% SYRIN 1 ml INTRADERM ONE; Chlorhexidine MOUTHWASH 0.12% 15 ML UDC ONE; Lactated Ringers 1000 ml BAG 1,000 ML IV SCH; Naloxone 0.4 mg VIAL 0.4 mg/ml 1 ml VIAL IV PRN; Ondansetron 4 mg VIAL 2 MG/ML 2 ml VIAL IV PRN; fentaNYL 100 mcg/2 ml 50 MCG/ML VIAL IV PRN
[2022-12-08] MEDS ORDERED: ceFAZolin 2 GM in NS PREMIX 2 GM/100 ML BAG IVPB ONE (06:27)
[2022-12-08 06:47] LABS: Rapid COVID-19 Molecular Undetected (Undetected)
[2022-12-08] MEDS ORDERED: Thrombin 5,000 UNITS 1 APPLIC KIT - topical use - TOPICAL ONE (07:07)
[2022-12-08] MEDS ORDERED: Lidocaine 1% w EPI 1:100,000 MDV 20 ML VIAL ONE (07:07)
[2022-12-08] MEDS ORDERED: ceFAZolin VIAL VIAL ONE (07:07)
[2022-12-08] MEDS ORDERED: Gelfoam Sponge SIZE 100 SPONGE ONE (07:08)
[2022-12-08] MEDS ORDERED: Rocuronium 50 mg VIAL 10 mg/ml 5 ml VIAL (50 mg) ONE (07:14)
[2022-12-08] MEDS ORDERED: fentaNYL 250 mcg/5 ml 50 MCG/ML 5 ml VIAL (250 MCG) ONE (07:15)
[2022-12-08] MEDS ORDERED: Midazolam 2 mg/2 ml VIAL 1 mg/ml 2 ml VIAL (2 mg) ONE (07:15)
[2022-12-08] MEDS ORDERED: Lidocaine 2% PF 5 ML VIAL ONE (07:19)
[2022-12-08] MEDS ORDERED: Propofol 10 MG/ML 20 ML BTL ONE (07:19)
[2022-12-08] MEDS ORDERED: HYDROmorphone 0.5 MG/0.5 ML SYRINGE ONE (07:59)
[2022-12-08] MEDS ORDERED: Acetaminophen IV 1 GM/100ML 1,000 MG/100 ML BAG IV ONE (08:01)
[2022-12-08] MEDS ORDERED: Dexamethasone IV 4 MG/ML VIAL 1 ml VIAL ONE (08:02)
[2022-12-08] MEDS ORDERED: Ondansetron 4 mg VIAL 2 MG/ML 2 ml VIAL ONE (08:02)
[2022-12-08] MEDS ORDERED: Ondansetron 4 mg VIAL 2 MG/ML 2 ml VIAL IV PRN (09:03)
[2022-12-08] MEDS ORDERED: Senna TAB 8.6 mg TAB PO PRN (09:03)
[2022-12-08] MEDS ORDERED: HYDROcodone/ACETAMIN 5/325 mg TAB PO PRN ×2 (09:03)
[2022-12-08] MEDS ORDERED: Morphine 2 MG/ML SYRINGE IV PRN (09:03)
[2022-12-08] MEDS ORDERED: Calcium Carb (TUMS) 500 mg CHEW TAB PO PRN (09:03)
[2022-12-08] MEDS ORDERED: Lactated Ringers 1000 ml BAG 1,000 ML IV SCH (10:00)
[2022-12-09 06:40] VITALS: BP 126/61
== END 2022-12-09 11:15 | disposition home or self-care (01) ==
LOC: OR 06:01 → SSU 06:01
PROVIDERS: ADMIT Neurological Surgery; ATTEND Neurological Surgery